=== PATIENT | female | born 1960 | race Caucasian/White ===

== ENCOUNTER → 2023-10-20 | Outpatient (CLI) | payer OTHER, SELFPAY ==
--- NOTE | 2023-10-20 08:36 | BI_ITS ---
MAMMOGRAPHY - BILATERAL SCREENING REASON FOR EXAM: Female, 63 years old. Routine annual screening examination. PERTINENT HISTORY: Non-contributory. TECHNIQUE: Digital bilateral breast gali (3D mammographic acquisition) in the CC and MLO projections. 2-D mediolateral oblique (MLO) and craniocaudad (CC) views of both breasts were obtained. CAD: Full Field Digital Mammography with Computer Added Detection was performed. COMPARISON: Comparison is made with prior outside examination dated October 02, 2022. FINDINGS: Breast Composition: There are scattered areas of fibroglandular density. There are no dominant masses or suspicious calcifications. No other significant abnormalities are identified. There has been no significant change since the prior study. BI/SCRN MAMM (CAD)W/GALI BILAT IMPRESSION: Stable bilateral screening mammogram. Yearly follow-up mammogram recommended. (A) ASSESSMENT CATEGORY: BIRADS Category 1: Negative. A letter regarding these results will be sent to the patient by the facility within 30 days. Approximately 10% of breast cancers are not detected by mammography. A normal mammogram should not delay biopsy of a clinically suspicious abnormality. [id number] Electronically Signed: Leonidas Carrasco MD at 13:53 EST ,
--- OUTSIDE RECORDS SUMMARY | 2023-10-20 08:48 | XMS RPT_ITS | CCD ---
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 Name Role Phone Faizan Dickens MD Unavailable James Barron Primary Care Provider James Barron Primary Care Provider [phone] James Barron DO Primary Care Provider James Barron DO Primary Care Provider James Barron DO Primary Care Provider James Barron Primary Care Unavailable James Barron Attending Unavailable PROVIDER, UNKNOWN Referring Unavailable James Barron Primary Care Unavailable James Barron Attending Unavailable PROVIDER, UNKNOWN Referring Unavailable James Barron Primary Care Unavailable PROVIDER, UNKNOWN Referring Unavailable Michelle Chan Attending Unavailable James Barron Primary Care Unavailable PROVIDER, UNKNOWN Referring Unavailable Michelle Chan Attending Unavailable James Barron Primary Care Unavailable James Barron Attending Unavailable PROVIDER, UNKNOWN Referring Unavailable Kilo Dela Cruz DO Unavailable Tokhoney BLANC - Annamaria JIMENEZ Unavailable Mariano LIMON Taye F Primary Care Provider Kilo Dela Cruz DO Unavailable Tokhoney BLANC - Annamaria JIMENEZ Unavailable Mariano LIMON Taye F Primary Care Provider Mariano LIMON Taye F Primary Care Provider Unavailable Primary Care Provider UnavailNURYS Contreras Attending Unavailable BJ PARRA Referring Unavailable JAMES BARRON Primary Care Unavailable JAMES BARRON Primary Care Unavailable BJ PARRA Admitting Unavailable BJ PARRA Attending Unavailable JAMES BARRON Primary Care Unavailable BJ PARRA Attending Unavailable TAYE QUINTANA Primary Care Unavailable TAYE QUINTANA Attending Unavailable JAMES BARRON Primary Care Unavailable JAMES BARRON Attending Unavailable TAYE QUINTANA Primary Care Unavailable TAYE QUINTANA Attending Unavailable JAMES BARRON Referring Unavailable BJ PARRA Attending Unavailable JAMES BARRON Primary Care Unavailable BJ PARRA Attending Unavailable JAMES BARRON Primary Care Unavailable ANDREW, BJ Attending Unavailable MICHELLE CHAN Referring Unavailable ANDERSON, JAMES Referring Unavailable Medications Current Medications Medication Drug Class(es) Dates Sig (Normalized) Sig (Original) [id number] 200 actuat albuterol 0.09 mg/actuat metered dose inhaler (19 sources) beta2-Adrenergic Agonist Start: 10-14-2022 End: 12-17-2023 take 2 puff(s) by inhalation every six hours as needed albuterol 108 (90 Base) MCG/ACT inhaler Inhale 2 puffs every 6 hours as needed for shortness of breath. 18 g 1 08/20/2023 12/17/2023 Active Completed/Discontinued Medications Medication Drug Class(es) Dates Sig (Normalized) Sig (Original) acetaminophen 300 mg / codeine phosphate 30 mg oral tablet (1 source) Opioid Agonist Start: TYLENOL WITH CODEINE #3 300-30 MG TABS 1 tablet every 4 hours as needed ACETAMINOPHEN-CODEINE [id number] Faizan Dickens MD hydroCHLOROthiazide 12.5 mg oral capsule (11 sources) Thiazide Diuretic Start: 3 End: 3 take 1 capsule by mouth once daily hydroCHLOROthiazide (Microzide) 12.5 MG capsule Take 1 capsule (12.5 mg) by mouth daily. 30 capsule 3 10/14/2022 02/18/2023 Discontinued (Alternate therapy) Problems Active Problems Problem Classification Problem Date Documented Date Episodic/Chronic Acquired foot deformities (20 sources) Acquired bilateral hallux valgus; Translations: [Hallux valgus (acquired), right foot] Onset: 06-25-2016 Resolved: 02-18-2023 05-04-2017 Chronic Acquired foot deformities (5 sources) Acquired bilateral hallux valgus; Translations: [Hallux valgus, acquired, bilateral] Onset: 06-25-2016 05-04-2017 Anxiety disorders (20 sources) Generalized anxiety disorder; Translations: [Generalized anxiety disorder] Onset: 12-26-2015 12-26-2015 Chronic Chronic obstructive pulmonary disease and bronchiectasis (20 sources) Chronic obstructive lung disease; Translations: [Chronic obstructive pulmonary disease, unspecified] Onset: 09-24-2018 Resolved: 02-18-2023 09-24-2018 Chronic Disorders of lipid metabolism (3 sources) Hypercholesterolemia; Translations: [Pure hypercholesterolemia, unspecified] Onset: 08-20-2023 08-20-2023 Chronic Esophageal disorders (20 sources) Gastroesophageal reflux disease; Translations: [Gastro-esophageal reflux disease without esophagitis] Onset: 02-20-2016 Resolved: 02-18-2023 12-04-2016 Chronic Essential hypertension (20 sources) Essential hypertension; Translations: [Hypertensive disorder] Onset: 09-21-2000 Resolved: 07-24-2020 08-16-2018 Chronic Mood disorders (1 source) Depressive disorder; Translations: [Depression, unspecified depression type] 08-20-2023 Chronic Mood disorders (2 sources) Mood disorders; Translations: [Depression, unspecified] Onset: 08-20-2023 Osteoarthritis (2 sources) Bilateral primary osteoarthritis of hip; Translations: [Bilateral primary osteoarthritis of hip] Onset: 06-18-2022 Chronic Other connective tissue disease (4 sources) Adhesive capsulitis of right shoulder; Translations: [Adhesive capsulitis of right shoulder] Onset: 08-16-2019 08-16-2019 Other endocrine disorders (2 sources) Other specified disorders of adrenal gland; Translations: [Other specified disorders of adrenal gland] Onset: 07-04-2022 Chronic Other lower respiratory disease (2 sources) Pulmonary fibrosis, unspecified; Translations: [Pulmonary fibrosis, unspecified] Onset: 07-04-2022 Chronic Other non-traumatic joint disorders (2 sources) Pain in left hip; Translations: [Pain in left hip] Onset: 06-18-2022 Episodic Other screening for suspected conditions (not mental disorders or infectious disease) (14 sources) Mammography abnormal; Translations: [Encounter for screening mammogram for malignant neoplasm of breast] Onset: 08-22-2021 Resolved: 02-18-2023 Episodic Other skin disorders (1 source) Eruption; Translations: [Rash and other nonspecific skin eruption] 08-06-2023 Episodic Screening and history of mental health and substance abuse codes (20 sources) Ex-smoker; Translations: [Personal history of nicotine dependence] Onset: 12-26-2015 12-26-2015 Episodic Unclassified (5 sources) Pneumococcal vaccination declined; Translations: [Pneumococcal vaccine refused] Onset: 03-28-2019 03-28-2019 Past or Other Problems Problem Classification Problem Date Documented Date Episodic/Chronic Abdominal hernia (20 sources) Diaphragmatic hernia without obstruction or gangrene; Translations: [Unilateral inguinal hernia, without obstruction or gangrene, not specified as recurrent] Onset: 2 Resolved: 3 Episodic Abdominal pain (20 sources) Epigastric pain; Translations: [Epigastric pain] Onset: 2 Resolved: 3 Episodic Alcohol-related disorders (20 sources) Alcohol intake above recommended sensible limits; Translations: [Alcohol abuse, uncomplicated] Onset: 7 Resolved: 3 05-04-2017 Chronic Fracture of lower limb (20 sources) Closed fracture of upper end of fibula; Translations: [Closed fracture of head of fibula] Onset: 8 Resolved: 3 08-20-2018 Episodic Other aftercare (2 sources) Encounter for other specified surgical aftercare; Translations: [Encounter for other specified surgical aftercare] Onset: 3 Episodic Other connective tissue disease (12 sources) Adhesive capsulitis of right shoulder; Translations: [Adhesive capsulitis of right shoulder] Onset: 9 08-16-2019 Episodic Other gastrointestinal disorders (2 sources) Dysphagia, pharyngoesophageal phase; Translations: [Dysphagia, pharyngoesophageal phase] Onset: 3 Episodic Other injuries and conditions due to external causes (20 sources) Injury of shoulder and upper arm; Translations: [Strain of muscle, fascia and tendon of other parts of biceps, right arm, initial encounter] Onset: 9 Resolved: 3 02-04-2019 Episodic Other lower respiratory disease (9 sources) Cough; Translations: [Cough] Onset: 3 Resolved: 3 Episodic Other lower respiratory disease (2 sources) Shortness of breath; Translations: [Shortness of breath] Onset: 1 Episodic Other non-traumatic joint disorders (20 sources) Shoulder pain; Translations: [Pain in right shoulder] Onset: 9 Resolved: 3 03-28-2019 Episodic Other non-traumatic joint disorders (17 sources) Joint swelling; Translations: [Effusion, unspecified joint] Onset: 7 Resolved: 3 05-04-2017 Episodic Other non-traumatic joint disorders (9 sources) Hip pain; Translations: [Pain in left hip] Onset: 2 Resolved: 3 Episodic Other non-traumatic joint disorders (4 sources) Pain in right shoulder; Translations: [Pain in joint, shoulder region] Onset: 9 Resolved: 3 02-18-2023 Episodic Residual codes; unclassified (20 sources) Amnesia; Translations: [Other amnesia] Onset: 7 Resolved: 3 05-04-2017 Episodic Residual codes; unclassified (12 sources) Pneumococcal vaccination declined; Translations: [Immunization not carried out because of patient refusal] Onset: 9 Resolved: 3 03-28-2019 Episodic Residual codes; unclassified (8 sources) Unspecified problems with limbs and other problems; Translations: [Problem] Onset: 3 Resolved: 3 11-04-2022 Episodic Unclassified (1 source) Problem Results Test Name Value Interpretation Reference Range Facil ity Vital Signs Date Time Vital Sign Value Performing Clinician Facility 08-20-2023 14:57-0500 Body height 167.6 cm Taye Tuckerrolf DO Work Phone: [facility] 08-20-2023 14:57-0500 Body mass index (BMI) [Ratio] 27.12 kg/m2 Taye Quintana DO Work Phone: [facility] 08-20-2023 14:57-0500 Body temperature 97.3 [degF] Taye Quintana DO Work Phone: [facility] [employer] 08-20-2023 14:57-0500 Body weight 76.2 kg Taye Quintana DO Work Phone: [facility] 08-20-2023 14:57-0500 Diastolic blood pressure 81 mm[Hg] Taye Quintana DO Work Phone: [facility] 08-20-2023 14:57-0500 Heart rate 70 /min Taye Quintana DO Work Phone: [facility] 08-20-2023 14:57-0500 SaO2% (BldA) [Mass fraction] 98 % Taye Quintana DO Work Phone: [facility] 08-20-2023 14:57-0500 Systolic blood pressure 131 mm[Hg] Taye Qiuntana DO Work Phone: [facility] 08-06-2023 15:29-0500 Body height 167.6 cm Nurys Rider AUDIO VISUAL SECRETARY.UNIFORM FORCE CAPTAIN Work Phone: [facility] 08-06-2023 15:29-0500 Diastolic blood pressure 68 mm[Hg] Nurys Rider AUDIO VISUAL SECRETARY.UNIFORM FORCE CAPTAIN Work Phone: [facility] 08-06-2023 15:29-0500 Heart rate 55 /min Nurys Rider AUDIO VISUAL SECRETARY.UNIFORM FORCE CAPTAIN Work Phone: [facility] 08-06-2023 15:29-0500 Respiratory rate 16 /min Nurys Rider AUDIO VISUAL SECRETARY.UNIFORM FORCE CAPTAIN Work Phone: [facility] 08-06-2023 15:29-0500 SaO2% (BldA) [Mass fraction] 98 % Nurys Rider AUDIO VISUAL SECRETARY.UNIFORM FORCE CAPTAIN Work Phone: [facility] 08-06-2023 15:29-0500 Systolic blood pressure 150 mm[Hg] Nurys Rider AUDIO VISUAL SECRETARY.UNIFORM FORCE CAPTAIN Work Phone: [facility] 02-18-2023 14:47-0400 Body height 167.6 cm Taye Quintana DO Work Phone: [facility] 02-18-2023 14:47-0400 Body mass index (BMI) [Ratio] 25.99 kg/m2 Taye Quintana DO Work Phone: [facility] 02-18-2023 14:47-0400 Body temperature 97.11 [degF] Taye Quintana DO Work Phone: [facility] 02-18-2023 14:47-0400 Body weight 73.03 kg Taye Quintana DO Work Phone: [facility] 02-18-2023 14:47-0400 Diastolic blood pressure 66 mm[Hg] Taye Quintana DO Work Phone: [facility] 02-18-2023 14:47-0400 Heart rate 53 /min Taye Quintana DO Work Phone: [facility] 02-18-2023 14:47-0400 SaO2% (BldA) [Mass fraction] 97 % Taye Quintana DO Work Phone: [facility] 02-18-2023 14:47-0400 Systolic blood pressure 105 mm[Hg] Taye Quintana DO Work Phone: [employer] 11-21-2019 13:16-0500 BP Diastolic 66 mm[Hg] [facility] [place] 11-21-2019 13:16-0500 BP Systolic 109 mm[Hg] [facility] [place] 11-21-2019 13:16-0500 Pulse (Heart Rate) 71 /min [place] [employer] [employer] [facility] 11-21-2019 13:16-0500 Pulse Oximetry 99 % [place] 11-21-2019 12:53-0500 Body Temperature 98.6 [degF] [facility] [place] 11-21-2019 11:48-0500 BMI (Body Mass Index) 28.29 kg/m2 [place] 11-21-2019 11:48-0500 Body weight 77.11 kg [place], [place] 11-21-2019 11:48-0500 Height 165.1 cm [place], [place] NEGATED: Highlighted [id number] 12:50-0500 BMI (Body Mass Index) 26.72 kg/m2 Jesi Diesch AIR DRIER MACHINE OPERATOR [facility] Work Phone: NEGATED: Highlighted [id number] 12:50-0500 BP Diastolic 98 mm[Hg] Jesi Diesch AIR DRIER MACHINE OPERATOR [facility] Work Phone: NEGATED: Highlighted [id number] 12:50-0500 BP Diastolic 99 mm[Hg] Jesi Diesch AIR DRIER MACHINE OPERATOR [facility] Work Phone: NEGATED: Highlighted [id number] 12:50-0500 BP Systolic 156 mm[Hg] Jesi Diesch AIR DRIER MACHINE OPERATOR [facility] Work Phone: NEGATED: Highlighted [id number] 12:50-0500 BP Systolic 159 mm[Hg] Jesi Diesch AIR DRIER MACHINE OPERATOR [facility] Work Phone: NEGATED: Highlighted [id number] 12:50-0500 Height 170.18 cm Jesi Diesch AIR DRIER MACHINE OPERATOR [facility] Work Phone: NEGATED: Highlighted [id number] 12:50-0500 Height 170 cm Jesi Diesch AIR DRIER MACHINE OPERATOR [facility] Work Phone: NEGATED: Highlighted [id number] 12:50-0500 Pulse (Heart Rate) 64 /min Jesi Diesch AIR DRIER MACHINE OPERATOR [facility] Work Phone: NEGATED: Highlighted [id number] 12:50-0500 Weight 77.11 kg Jesi Diesch AIR DRIER MACHINE OPERATOR [facility] Work Phone: NEGATED: Highlighted [id number] 12:50-0500 Weight 77 kg Jesi Florentino LPN [facility] Work Phone: Encounters Encounter Date Encounter Type Care Provider Facility Start: 08-20-2023 End: 08-20-2023 ambulatory TAYE QUINTANA [facility] Start: 08-20-2023 End: 08-20-2023 Office outpatient visit 15 minutes Taye Quintana DO Work Phone: [facility] Procedures Date Procedure Procedure Detail Performing Clinician Start: 10-14-2022 Follow-up visit Follow-up JAMES CHANGO Start: 10-02-2022 Mammography Taye brown DO Work Phone: Start: 06-18-2022 Radex hip unilateral with pelvis 2-3 views James Barron DO Work Phone: Start: 04-29-2021 Radiologic exam ches t 2 views James Barron DO Work Phone: Start: 12-06-2019 Blood count complete auto&auto difrntl wbc Moris [employer] Work Phone: Start: 12-06-2019 Comprehensive metabo lic panel Moris Soni Work Phone: Start: 11-21-2019 End: 11-21-2019 Colonoscopy 3m Scanning Start: 11-21-2019 [facility] ENDOSCOPY REPORT 3m Scanning Start: 05-05-2019 Radex shoulder compl ete minimum 2 views Nicolas Galindo Work Phone: Start: 12-20-2018 Lipid 1996 panel - S aixa or Plasma Nurys Rider AUDIO VISUAL SECRETARY.UNIFORM FORCE CAPTAIN Work Phone: Start: 08-20-2018 End: 08-20-2018 Blood pressure outside of normal parameters - follow-up not documented Faizan Dickens MD Work Phone: Start: 08-20-2018 End: 08-20-2018 BMI documented as above normal parameters - follow-up documented Faizan Dickens MD Work Phone: Start: 08-20-2018 End: 08-20-2018 Doc fx & test/txmnt for op Faizan Kendrick se, MD Work Phone: Start: 08-20-2018 End: 08-20-2018 Documentation of current medications Faizan Dickens MD Work Phone: Start: 08-20-2018 End: 08-20-2018 Pain assessment documented as positive - follow-up documented Faizan Dickens MD Work Phone: Start: 08-20-2018 End: 08-20-2018 Radex ankle complete minimum 3 views Faizan Dickens MD Work Phone: Start: 08-20-2018 End: 08-20-2018 Tobacco non-user Faizan Dickens MD Work Phone: Plan of Treatment Date Care Activity Detail Author Start: 11-20-2029 Colon cancer screen colonoscopy Colon cancer screen colonoscopy [place], [place] Start: 11-20-2029 Screening for malignant neoplasm of colon [facility] Start: 08-14-2028 DTaP/Tdap/Td vaccine (2 - Td or Tdap) DTaP/Tdap/Td vaccine (2 - Td or Tdap) [facility] Start: 08-14-2028 DTaP/Tdap/Td vaccine (2 - Td) DTaP/Tdap/Td vaccine (2 - Td) [place] Start: 08-14-2028 DTaP/Tdap/Td Vaccines (2 - Td or Tdap) DTaP/Tdap/Td Vaccines (2 - Td or Tdap) [facility] Start: 08-14-2028 Urine microalbumin profile DTaP,Tdap,Td Vaccine (2 - Td or Tdap) [facility] Start: 02-25-2026 Colon cancer screen colonoscopy Colon cancer screen colonoscopy [place], [place] Start: 02-18-2024 End: 02-18-2024 Patient encounter procedure 02/18/2024 3:30 PM EDT Office Visit [facility] [address] [place] [address] Taye Quintana, DO [address] [place] [address] [facility] Start: 12-21-2023 Lipid 1996 panel - Serum or Plasma Lipid Screening [facility] Start: 12-21-2023 Lipid panel [facility] Start: 12-21-2023 Lipid screen Lipid screen [place], [place] Start: 10-02-2023 Screening for malignant neoplasm of breast Mammogram [facility] Start: 08-22-2023 Screening for malignant neoplasm of breast Breast cancer screen [facility] Start: 08-20-2023 End: 08-20-2023 Patient encounter procedure [facility] Start: 08-20-2023 End: 08-20-2024 CBC W Auto Differential panel - Blood CBC auto differential Lab Routine Primary hypertension Expected: 08/20/2023 (Approximate), Expires: 08/20/2024 [facility] Work Phone: Immunizations Immunization Date Immunization Notes Care Provider Fa cility 02-18-2023 Pneumococcal Conjuga te PCV20, Pf (Prevnar 20) Taye Quintana DO Work Phone: [facility] [employer] 09-15-2021 COVID-19, MODERNA BL UE border, Primary or Immunocompromised, (age 12y+), IM, 100 mcg/0.5mL James Barron DO Work Phone: [facility] Work Phone: 03-07-2021 COVID-19, MODERNA BL UE border, Primary or Immunocompromised, (age 12y+), IM, 100 mcg/0.5mL James Barron DO Work Phone: [facility] 02-07-2021 COVID-19, MODERNA BL UE border, Primary or Immunocompromised, (age 12y+), IM, 100 mcg/0.5mL James Barron DO Work Phone: [facility] Work Phone: 06-26-2020 Influenza, High-dose , Quadv, 65 yrs +, IM (Fluzone) James Barron [facility] 06-26-2020 influenza virus vaccine, unspecified formulation Taye Quintana DO Work Phone: [facility] 08-14-2018 tetanus toxoid, reduced diphtheria toxoid, and acellular pertussis vaccine, adsorbed Nicolas Galindo [facility] Work Phone: No information available. Jesi Florentino JUSTICE [facility] Work Phone: Payers Date Payer Category Payer Unknown [id number] 2018 Unknown 2016 Unknown BCBS [place] - [place] P PO xxxxxxxxxxxxxxx 2016-Present [address] [place] [address] xxxxxxxxxxxxxxx [id number] 2016 Unknown [id number] 1962 Unknown [id number] 1962 Unknown [id number] 1962 Unknown [id number] 1962 Unknown [id number] 1960 Unknown [id number] Social History Date Type Detail Facility Start: 11-21-2019 End: 10-13-2022 Tobacco smoking status NHIS Former smoker [facility] End: 09-21-2015 History of tobacco use Current smoker [place], [place] End: 09-21-2015 History of tobacco use Cigarette Smoker [place] Start: 11-21-2019 End: 02-18-2023 Cigarettes smoked current (pack per day) - Reported [place] Start: 11-21-2019 End: 08-20-2023 Alcohol intake Lifetime non-drinker (finding) [facility] Start: 12-20-2018 End: 06-17-2022 History SDOH Alcohol Frequency [facility] Start: 12-20-2018 End: 06-17-2022 History SDOH Social Connections Phone 5 [facility] Start: 12-20-2018 End: 03-15-2019 History SDOH Social Connections [facility] Start: 12-20-2018 History SDOH [facility]ctions [facility] Start: 12-20-2018 History SDOH Financial 4 [facility] ID Start: 1960 Sex Assigned At Not on file [facility] Start: 06-26-2020 End: 10-13-2022 Tobacco use and exposure [facility] Start: 05-05-2019 End: 02-18-2023 [facility] intake [facility]: 1960 Sex Assigned At Female [facility] Work Phone: Start: 12-02-2022 End: 02-18-2023 Exposure to SARS-CoV-2 (event) Not sure [facility] Tobacco smoking status NHIS Tobacco smoking consumption unknown [facility] NEGATED: Highlighted rowStart: 08-20-2018 End: 08-20-2018 Alcohol use Former smoker [facility] Work Phone: NEGATED: Highlighted rowStart: 08-20-2018 End: 08-20-2018 Details of drug misuse behavior DRUG USE No [facility] Work Phone: NEGATED: Highlighted rowStart: 08-20-2018 End: 08-20-2018 Employment detail OCCUPATION#1 [employer] [facility] Work Phone: NEGATED: Highlighted rowStart: 08-20-2018 End: 08-20-2018 Assertion Former smoker [facility] Work Phone: Medical Equipment Procedure Code Equipment Code Equipment Origin al Text Equipment Identifier Dates Mesh Progrip 10x 15cm Rt - [id number] Start: 10-20-2022 Goals Date Patient Goal Desired Activity /State Clinical Notes 10-13-2022 to 08-20-2023 Taye Quintana DO - 08/20/2023 3:00 PM Nurys Bell APRN.SANDEEP - 08/06/2023 3:25 PM ESTPatient InstructionsTelephone Encounter - Jazzmine Khalil - 06/01/2023 9:45 AM EDT Note Date & Type Note Facility 08-20-2023 History of Present illness Narrative Images from the original note were not included. [facility] [address] [place] [address] [address] [facility] [address] Visit type: Established Patient Reason for Visit: Follow-up (6 month med check) Assessment / Plan: Marycruz was seen today for follow-up. Diagnoses and all orders for this visit: Primary hypertension (Primary) Comments: Stable, continue metoprolol and benazepril Orders: - CBC auto differential; Future - Comprehensive metabolic panel; Future - CBC auto differential - Comprehensive metabolic panel Gastroesophageal reflux disease without esophagitis Comments: Stable, Dexilant as needed Depression, unspecified depression type Comments: Stable, continue Effexor Chronic obstructive pulmonary disease, unspecified COPD type (HCC) Comments: Noted, praise given about smoking cessation. Continue fluticasone and albuterol as needed Ex-smoker Hypercholesterolemia Comments: Stable, recheck lab Orders: - Lipid panel; Future - TSH; Future - Lipid panel - TSH Encounter for screening mammogram for malignant neoplasm of breast Comments: Defers exam today. Mammogram, breast exam next visit Orders: - Bilateral screening mammogram with tomosynthesis; Future Other orders - albuterol 108 (90 Base) MCG/ACT inhaler; Inhale 2 puffs every 6 hours as needed for shortness of breath. - benazepril (Lotensin) 40 MG tablet; Take 1 tablet (40 mg) by mouth daily. - Fluticasone-Salmeterol 250-50 MCG/ACT aerosol powder ; Inhale 1 puff in the morning and 1 puff in the evening. - metoprolol succinate XL (Toprol-XL) 100 MG 24 hr tablet; Take 1 tablet (100 mg) by mouth daily. - venlafaxine XR (Effexor XR) 150 MG 24 hr capsule; Take 1 capsule (150 mg) by mouth daily. Subjective: Patient ID: Marycruz Longoria is a 63 y.o. female. HPI ex-smoker for many years with history of mild COPD, hypertension and anxiety presents for checkup. Of note had fundoplication this along with ventral and inguinal hernia repair 10 months ago and rarely uses Dexilant. She feels that is helped a lot. Has been on Effexor quite a while. Has generalized anxiety and history of mild memory loss. Things are better. She is actually doing well with her position at work. Her recently retired due to severe COPD. Review of Systems denies recent earache sore throat or cough. No purulent phlegm or fever. No chest pain or palpitations. No PND orthopnea or edema. No heartburn or choking. No melena or blood. Bowels are regular. Colonoscopy due in 3 years. Does not desire mammogram But defers exam today. No change in stress or anxiety. Her children and grandkids are well No Known Allergies Current Outpatient Medications on File Prior to Visit Medication Sig Dispense Refill cetirizine (ZyrTEC) 10 MG tablet Take by mouth. dexlansoprazole (Dexilant) [address] capsule Take 1 capsule (60 mg) by mouth daily. 90 capsule 1 pantoprazole (ProtoNix) 40 MG EC tablet Take 1 tablet (40 mg) by mouth Daily as needed (as needed for gerd). 90 tablet 1 [DISCONTINUED] albuterol 108 (90 Base) MCG/ACT inhaler Inhale 2 puffs every 6 hours as needed for shortness of breath. 18 g 1 [DISCONTINUED] benazepril (Lotensin) 40 MG tablet Take 1 tablet (40 mg) by mouth daily. 90 tablet 1 [DISCONTINUED] Fluticasone-Salmeterol 250-50 MCG/ACT aerosol powder Inhale 1 puff in the morning and 1 puff in the evening. 1 each 3 [DISCONTINUED] metoprolol succinate XL (Toprol-XL) 100 MG 24 hr tablet Take 1 tablet (100 mg) by mouth daily. 90 tablet 0 [DISCONTINUED] venlafaxine XR (Effexor XR) 150 MG 24 hr capsule Take 1 capsule (150 mg) by mouth daily. 90 capsule 0 No current facility-administered medications on file prior to visit. Patient Active Problem List Diagnosis Adhesive capsulitis of right shoulder Ex-smoker Generalized anxiety disorder COPD (chronic obstructive pulmonary disease) (HCC) HTN (hypertension) Hallux valgus, acquired, bilateral Hiatal hernia Gastroesophageal reflux disease Social History Tobacco Use Smoking status: Former Packs/day: 0.50 Years: 35.00 Additional pack years: 0.00 Total pack years: 17.50 Types: Cigarettes Quit date: 09/21/2015 Years since quittin.9 Smokeless tobacco: Never Substance Use Topics Alcohol use: Never Past Surgical History: Procedure Laterality Date SECTION, LOW TRANSVERSE 1986 pfannenstiel SECTION, LOW TRANSVERSE 1988 Pfannenstiel COLONOSCOPY 02/2016 neg per Julian- due 2025 ESOPHAGOGASTRODUODENOSCOPY 2021 Gastritis. Follow-up with GI 6 weeks HIATAL HERNIA REPAIR 10/20/2022 lap Rt Ing hernia repair w/mesh, hiatal hernia repair w/ mesh, open incisional hernia repair TONSILLECTOMY AND ADENOIDECTOMY (HISTORICAL) 1968 TOTAL ABDOMINAL HYSTERECTOMY 1997 UPPER GASTROINTESTINAL ENDOSCOPY 2015 esoph dil per [facility] UPPER GASTROINTESTINAL ENDOSCOPY 2016 [facility] WISDOM TOOTH EXTRACTION Family History Problem Relation Name Age of Onset Atrial fibrillation Mother Bonita Davison chf High Blood Pressure Mother Bonita Davison age 92 in fall of 2020 Stroke Father Ed Saman Heart disease Father Ed Saman CHF High Blood Pressure Father Mason Davison age 89 in 11/04 Hypertension Sister Argenis Quiñones No Known Problems Brother Miki Atrial fibrillation Brother Alfie No Known Problems Brother Valerio Objective: BP 131/81 Pulse 70 Temp 36.3 C (97.3 F) (Temporal) Ht 5' 6 (1.676 m) Wt 168 lb (76.2 kg) SpO2 98% BMI 27.12 kg/m Physical Exam Exam is unremarkable today. Blood pressure recheck well. No thyroid or neck masses. Normal oropharynx. No adenopathy or carotid bruits. Heart is regular without gallops or murmurs. Lungs are diminished but clear of rales wheezes or egophony. Abdomen soft without pain hepatosplenomegaly masses bruits or ascites. Femoral pedal pulses are good. No edema. documented in this encounter [facility] 08-06-2023 Note HNO ID: [id number] Author: Nurys Rider APRN.[facility] Service: ? Author Type: Nurse Practitioner Type: Progress Notes Filed: 08/06/2023 3:39 PM Note Text: This note was created using LuckyCal[employer]. Subjective Marycruz Longoria is a 63 year old female. HPI by patient: Marycruz Longoria is a 63 year old presenting to the office with the complaint of a rash to the bilateral arms, back, and abdomen. Started today. Associated symptoms include itching. Denies difficulty breathing, difficulty swallowing, or tingling in the throat. Has never had a similar rash. No contacts with similar rash. Denies all new exposures asides from her metoprolol- not a new medication but did get a refill and it looks just like the other ones. OTC benadryl with some improvement. No antibiotic use in the last 60 days. ALLERGIES No Known Allergies No family history on file. Active Ambulatory Problems No Active Ambulatory Problems Resolved Ambulatory Problems No Resolved Ambulatory Problems No Additional Past Medical History Review of Systems Constitutional: Negative. HENT: Negative. Eyes: Negative. Respiratory: Negative. Cardiovascular: Negative. Gastrointestinal: Negative. Endocrine: Negative. Genitourinary: Negative. Musculoskeletal: Negative. Skin: Positive for rash. Neurological: Negative. Hematological: Negative. Objective BP 150/68 Pulse (!) 55 Resp 16 Ht 167.6 cm (5' 6 ) SpO2 98% Physical Exam Vitals reviewed. Constitutional: General: She is not in acute distress. Appearance: She is not ill-appearing, toxic-appearing or diaphoretic. Cardiovascular: Rate and Rhythm: Normal rate and regular rhythm. Pulmonary: Effort: Pulmonary effort is normal. Skin: Findings: Rash present. Rash is urticarial. Neurological: Mental Status: She is alert. Psychiatric: Behavior: Behavior is cooperative. Assessment and Plan (R21) Rash (primary encounter diagnosis) Plan: methylPREDNISolone (MEDROL DOSE-PACK) 4 mg Dose-Pack, famotidine (PEPCID) 20 mg tablet, cetirizine (ZYRTEC) 10 mg tablet, triamcinolone acetonide (KENALOG) 0.1 % cream Urticarial rash, having a reaction to something. No difficulty breathing or swallowing. Antihistamines to block histamine 1 and 2. No protonix while taking pepcid. Oral steroids with food, low dose steroid given her blood pressure. Triamcinolone ointment to the rash. -Keep area clean and dry. Non scented antimicrobial soap and water. -If you have significant itching please avoid heat as this can make the itching worse. Cool compresses for comfort. -Do not pick at the site. This can lead to a secondary infection. -Worsening symptoms: increased in size, streaking up or down the skin, fever of 101 F or higher, or copious drainage from the site, difficulty swallowing/breathing, swelling anywhere, chest pain. -Make a follow up with primary care, may need allergy testing done. -Be seen immediately or go to the ER with worsening symptoms. The patient will pursue further outpatient evaluation with the primary care physician or another Urgent Care/Express Care as outlined in the after visit summary. The patient is agreeable to this plan of care and follow-up instructions have been explained in detail. The patient has received these instructions in written format and have expressed an understanding of the after visit summary. Medical Decision Making: Level: 4 - Moderate I spent a total of 20 minutes on the date of the service which included preparing to see the patient, [id number] patient care, completing clinical documentation, obtaining and/or reviewing separately obtained history, performing a medically appropriate examination, counseling and educating the patient/family/caregiver, and ordering medications, tests, or procedures. [facility] 08-06-2023 History of Present illness Narrative Images from the original note were not included. This note was created using LuckyCalriter. Subjective Marycruz Longoria is a 63 year old female. HPI by patient: Marycruz Longoria is a 63 year old presenting to the office with the complaint of a rash to the bilateral arms, back, and abdomen. Started today. Associated symptoms include itching. Denies difficulty breathing, difficulty swallowing, or tingling in the throat. Has never had a similar rash. No contacts with similar rash. Denies all new exposures asides from her metoprolol- not a new medication but did get a refill and it looks just like the other ones. OTC benadryl with some improvement. No antibiotic use in the last 60 days. ALLERGIES No Known Allergies No family history on file. Active Ambulatory Problems No Active Ambulatory Problems Resolved Ambulatory Problems No Resolved Ambulatory Problems No Additional Past Medical History Review of Systems Constitutional: Negative. HENT: Negative. Eyes: Negative. Respiratory: Negative. Cardiovascular: Negative. Gastrointestinal: Negative. Endocrine: Negative. Genitourinary: Negative. Musculoskeletal: Negative. Skin: Positive for rash. Neurological: Negative. Hematological: Negative. Objective BP 150/68 Pulse (!) 55 Resp 16 Ht 167.6 cm (5' 6 ) SpO2 98% Physical Exam Vitals reviewed. Constitutional: General: She is not in acute distress. Appearance: She is not ill-appearing, toxic-appearing or diaphoretic. Cardiovascular: Rate and Rhythm: Normal rate and regular rhythm. Pulmonary: Effort: Pulmonary effort is normal. Skin: Findings: Rash present. Rash is urticarial. Neurological: Mental Status: She is alert. Psychiatric: Behavior: Behavior is cooperative. Assessment and Plan (R21) Rash (primary encounter diagnosis) Plan: methylPREDNISolone (MEDROL DOSE-PACK) 4 mg Dose-Pack, famotidine (PEPCID) 20 mg tablet, cetirizine (ZYRTEC) 10 mg tablet, triamcinolone acetonide (KENALOG) 0.1 % cream Urticarial rash, having a reaction to something. No difficulty breathing or swallowing. Antihistamines to block histamine 1 and 2. No protonix while taking pepcid. Oral steroids with food, low dose steroid given her blood pressure. Triamcinolone ointment to the rash. -Keep area clean and dry. Non scented antimicrobial soap and water. -If you have significant itching please avoid heat as this can make the itching worse. Cool compresses for comfort. -Do not pick at the site. This can lead to a secondary infection. -Worsening symptoms: increased in size, streaking up or down the skin, fever of 101 F or higher, or copious drainage from the site, difficulty swallowing/breathing, swelling anywhere, chest pain. -Make a follow up with primary care, may need allergy testing done. -Be seen immediately or go to the ER with worsening symptoms. The patient will pursue further outpatient evaluation with the primary care physician or another Urgent Care/Express Care as outlined in the after visit summary. The patient is agreeable to this plan of care and follow-up instructions have been explained in detail. The patient has received these instructions in written format and have expressed an understanding of the after visit summary. Medical Decision Making: Level: 4 - Moderate I spent a total of 20 minutes on the date of the service which included preparing to see the patient, [id number] patient care, completing clinical documentation, obtaining and/or reviewing separately obtained history, performing a medically appropriate examination, counseling and educating the patient/family/caregiver, and ordering medications, tests, or procedures. documented in this encounter [facility] 08-06-2023 Instructions Nurys Rider APRN.CNP - 08/06/2023 3:25 PM EST (R21) Rash (primary encounter diagnosis) Plan: methylPREDNISolone (MEDROL DOSE-PACK) 4 mg Dose-Pack, famotidine (PEPCID) 20 mg tablet, cetirizine (ZYRTEC) 10 mg tablet, triamcinolone acetonide (KENALOG) 0.1 % cream Urticarial rash, having a reaction to something. No difficulty breathing or swallowing. Antihistamines to block histamine 1 and 2. No protonix while taking pepcid. Oral steroids with food. Triamcinolone ointment to the rash. -Keep area clean and dry. Non scented antimicrobial soap and water. -If you have significant itching please avoid heat as this can make the itching worse. Cool compresses for comfort. -Do not pick at the site. This can lead to a secondary infection. -Worsening symptoms: increased in size, streaking up or down the skin, fever of 101 F or higher, or copious drainage from the site, difficulty swallowing/breathing, swelling anywhere, chest pain. -Make a follow up with primary care, may need allergy testing done. -Be seen immediately or go to the ER with worsening symptoms. documented in this encounter [facility] 06-01-2023 Telephone encounter Note Ordering provider: Mariano Date of last office visit: 02/18/2023 Date of next office visit: 08/20/2023 Updated/Validated preferred pharmacy: Yes Patient instructed to contact the pharmacy prior to picking up the medication: No (1) Medication name: metoprolol succinate XL (Toprol-XL) 100 MG 24 hr tablet Medication dosage: 100 mg (Miligrams Monthly quantity needed: 30 How many day supply requestin days Medication route: oral (PO) Medication administration time(s): daily If taking medication PRN, reason for taking medication: N/A If this is a controlled substance do you receive this or any other controlled medication from any other doctor or facility: No Date of last refill (see medication tab): 02/18/2023 (2) Medication name: venlafaxine XR (Effexor XR) 150 MG 24 hr capsule Medication dosage: 150 mg (Miligrams Monthly quantity needed: 30 How many day supply requestin days Medication route: oral (PO) Medication administration time(s): daily If taking medication PRN, reason for taking medication: N/A If this is a controlled substance do you receive this or any other controlled medication from any other doctor or facility: No Date of last refill (see medication tab): 02/18/2023 [facility] 06-01-2023 Miscellaneous Notes Ordering provider: Mariano Date of last office visit: 02/18/2023 Date of next office visit: 08/20/2023 Updated/Validated preferred pharmacy: Yes Patient instructed to contact the pharmacy prior to picking up the medication: No (1) Medication name: metoprolol succinate XL (Toprol-XL) 100 MG 24 hr tablet Medication dosage: 100 mg (Miligrams Monthly quantity needed: 30 How many day supply requestin days Medication route: oral (PO) Medication administration time(s): daily If taking medication PRN, reason for taking medication: N/A If this is a controlled substance do you receive this or any other controlled medication from any other doctor or facility: No Date of last refill (see medication tab): 02/18/2023 (2) Medication name: venlafaxine XR (Effexor XR) 150 MG 24 hr capsule Medication dosage: 150 mg (Miligrams Monthly quantity needed: 30 How many day supply requestin days Medication route: oral (PO) Medication administration time(s): daily If taking medication PRN, reason for taking medication: N/A If this is a controlled substance do you receive this or any other controlled medication from any other doctor or facility: No Date of last refill (see medication tab): 02/18/2023 documented in this encounter [facility] 02-18-2023 History of Present illness Narrative Images from the original note were not included. [facility] [address] [id number] Visit type: Established Patient Reason for Visit: Follow-up (6 month Med check) Assessment / Plan: Marycruz was seen today for follow-up. Diagnoses and all orders for this visit: Essential hypertension (Primary) Comments: Stable, continue metoprolol and stop hydrochlorothiazide due to relative low blood pressure Gastroesophageal reflux disease without esophagitis Comments: Stable, continue Protonix and avoidance measures Chronic obstructive pulmonary disease, unspecified COPD type (HCC) Comments: Stable, continue fluticasone, Zyrtec, and albuterol and praised smoking cessation Ex-smoker Generalized anxiety disorder Comments: Stable, continue Effexor Other orders - albuterol 108 (90 Base) MCG/ACT inhaler; Inhale 2 puffs every 6 hours as needed for shortness of breath. - benazepril (Lotensin) 40 MG tablet; Take 1 tablet (40 mg) by mouth daily. - dexlansoprazole (Dexilant) [address] capsule; Take 1 capsule (60 mg) by mouth daily. - Fluticasone-Salmeterol 250-50 MCG/ACT aerosol powder ; Inhale 1 puff in the morning and 1 puff in the evening. - metoprolol succinate XL (Toprol-XL) 100 MG 24 hr tablet; Take 1 tablet (100 mg) by mouth daily. - pantoprazole (ProtoNix) 40 MG EC tablet; Take 1 tablet (40 mg) by mouth Daily as needed (as needed for gerd). - venlafaxine XR (Effexor XR) 150 MG 24 hr capsule; Take 1 capsule (150 mg) by mouth daily. - Pneumococcal conjugate vaccine 20-valent IM (PREVNAR 20) Subjective: Patient ID: Marycruz Longoria is a 63 y.o. female. HPI ex-smoker for about 7 years but history of COPD, hypertension chronic anxiety and GERD presents for first-time checkup by me in many years. Past medical, surgical, family social history reviewed and chart updated. Recently her and [id number] and [id number] all had COVID infection. She had a minimal case. All 3 of those people have not been vaccinated. Nonetheless she is feeling a lot better. Back to her baseline respiratory ware over the last month Review of Systems chronic acid reflux treated well with either Protonix or Dexilant. No recent choking heartburn pyrosis abdominal pain. Has stopped alcohol excess and quit smoking many years ago. No bowel changes. No melena or blood. Blood pressure trending lower at home. She has lost weight from eating well and also due to her mild case of COVID. No change in phlegm or fever. Rare use of albuterol. Compliant with fluticasone salmeterol. Breast cancer screening up-to-date. Colonoscopy due in 3 years No Known Allergies Current Outpatient Medications on File Prior to Visit Medication Sig Dispense Refill [DISCONTINUED] albuterol 108 (90 Base) MCG/ACT inhaler Inhale 2 puffs every 6 hours as needed for shortness of breath. 18 g 1 [DISCONTINUED] benazepril (Lotensin) 40 MG tablet Take 1 tablet (40 mg) by mouth daily. 90 tablet 1 [DISCONTINUED] dexlansoprazole (Dexilant) [address] capsule Take 1 capsule by mouth in the morning. [DISCONTINUED] Fluticasone-Salmeterol 250-50 MCG/ACT aerosol powder Inhale 1 puff in the morning and 1 puff in the evening. 1 each 3 [DISCONTINUED] hydroCHLOROthiazide (Microzide) 12.5 MG capsule Take 1 capsule (12.5 mg) by mouth daily. 30 capsule 3 [DISCONTINUED] metoprolol succinate XL (Toprol-XL) 100 MG 24 hr tablet Take 1 tablet (100 mg) by mouth daily. 90 tablet 1 [DISCONTINUED] pantoprazole (ProtoNix) 40 MG EC tablet Take by mouth Daily as needed. [DISCONTINUED] venlafaxine XR (Effexor XR) 150 MG 24 hr capsule Take 1 capsule (150 mg) by mouth daily. 90 capsule 0 cetirizine (ZyrTEC) 10 MG tablet Take by mouth. No current facility-administered medications on file prior to visit. Patient Active Problem List Diagnosis Adhesive capsulitis of right shoulder Ex-smoker Generalized anxiety disorder COPD (chronic obstructive pulmonary disease) (HCC) HTN (hypertension) Hallux valgus, acquired, bilateral Hiatal hernia Gastroesophageal reflux disease Social History Tobacco Use Smoking status: Former Packs/day: 0.50 Years: 35.00 Pack years: 17.50 Types: Cigarettes Quit date: 09/21/2015 Years since quittin.4 Smokeless tobacco: Never Substance Use Topics Alcohol use: Never Past Surgical History: Procedure Laterality Date SECTION, LOW TRANSVERSE 1986 pfannenstiel SECTION, LOW TRANSVERSE 1988 Pfannenstiel COLONOSCOPY 02/2016 neg per Julian- due 2025 ESOPHAGOGASTRODUODENOSCOPY 05/15/2022 Gastritis. Follow-up with GI 6 weeks HERNIA REPAIR 10/20/2022 EGD, laparoscopic right inguinal hernia repair with mesh, laparoscopic hiatal hernia repair with mesh, open incisional hernia repair HIATAL HERNIA REPAIR TONSILLECTOMY AND ADENOIDECTOMY (HISTORICAL) 1968 TOTAL ABDOMINAL HYSTERECTOMY 1997 UPPER GASTROINTESTINAL ENDOSCOPY 02/2016 esoph dil per Julian UPPER GASTROINTESTINAL ENDOSCOPY 04/20/2017 [facility] WISDOM TOOTH EXTRACTION Family History Problem Relation Name Age of Onset Atrial fibrillation Mother Bonita Davison chf High Blood Pressure Mother Bonita Davison age 92 in fall of 2020 Stroke Father Ed Saman Heart disease Father Ed Saman CHF High Blood Pressure Father Mason Davison age 89 in 11/04 Hypertension Sister Argenis Quiñones No Known Problems Brother Miki Atrial fibrillation Brother Alfie No Known Problems Brother Valerio Objective: BP 105/66 Pulse 53 Temp 36.2 C (97.1 F) (Temporal) Ht 5' 6 (1.676 m) Wt 161 lb (73 kg) SpO2 97% BMI 25.99 kg/m Physical Exam The physical exam is generally normal. Patient appears well, alert and oriented x 3, pleasant, cooperative. Vitals are as noted. No carotid bruits. Neck supple, no abnormal adenopathy, thyroid lesions or masses. Ears, nose and throat are normal without acute findings. Lungs are clear to auscultation. Heart is regular, without murmurs, gallops or ectopy. Abdomen is soft, non tender, without masses, hepatosplenomegaly, or bruits. Normal BS evident. Extremities are normal without edema. Peripheral pulses are fair. No worrisome skin lesions. Screening neurological exam is normal without focal deficits. documented in this encounter [facility] 01-15-2023 Telephone encounter Note S: Patient spoke with [facility] nurse regarding sinus issues B: Onset of symptoms/concern 2 days ago A: PT C/O Coughing, H/A sinus drainage. Pt did test Positive for Covid 2 days ago. Advised her since symptoms were mild to do conventual therapy such as Advil for H/A and musinex D and sucking on lemon drops/cough drops also warm tea with honey will sooth the throat to help with coughing and drainage. Advised to increase her fluids as well. Pt gave verbal understanding. R: Advised Patient if gets any worse to give us a call back [facility] 01-15-2023 Miscellaneous Notes S: Patient spoke with [facility] nurse regarding sinus issues B: Onset of symptoms/concern 2 days ago A: PT C/O Coughing, H/A sinus drainage. Pt did test Positive for Covid 2 days ago. Advised her since symptoms were mild to do conventual therapy such as Advil for H/A and musinex D and sucking on lemon drops/cough drops also warm tea with honey will sooth the throat to help with coughing and drainage. Advised to increase her fluids as well. Pt gave verbal understanding. R: Advised Patient if gets any worse to give us a call back documented in this encounter [facility] 12-25-2022 Telephone encounter Note Rx loaded Last ov 10/14/22 Next ov 02/13/23 [facility] 12-25-2022 Miscellaneous Notes Rx loaded Last ov 10/14/22 Next ov 02/13/23 Medication name: albuterol 108 Medication dosage: MCG/ACT Monthly quantity needed: 90 How many day supply requestin days Medication route: inhalation (inhaler) Medication administration time(s): every 6 hours If taking medication PRN, reason for taking medication: N/A If this is a controlled substance do you receive this or any other controlled medication from any other doctor or facility: No Ordering provider: Mariano Date of last office visit: 10.14.22 Date of next office visit: 02.13.23 Date of last refill: (see medication tab): 10.14.22 Updated/Validated preferred pharmacy: Yes Patient instructed to contact the pharmacy prior to picking up the medication: Yes documented in this encounter [facility] 12-25-2022 Telephone encounter Note Medication name: albuterol 108 Medication dosage: MCG/ACT Monthly quantity needed: 90 How many day supply requestin days Medication route: inhalation (inhaler) Medication administration time(s): every 6 hours If taking medication PRN, reason for taking medication: N/A If this is a controlled substance do you receive this or any other controlled medication from any other doctor or facility: No Ordering provider: Mariano Date of last office visit: 10.14.22 Date of next office visit: 02.13.23 Date of last refill: (see medication tab): 10.14.22 Updated/Validated preferred pharmacy: Yes Patient instructed to contact the pharmacy prior to picking up the medication: Yes [facility] 12-25-2022 Telephone encounter Note Medication name: albuterol 108 Medication dosage: MCG/ACT Monthly quantity needed: 90 How many day supply requestin days Medication route: inhale Medication administration time(s): every 6 hours If taking medication PRN, reason for taking medication: N/A If this is a controlled substance do you receive this or any other controlled medication from any other doctor or facility: No Ordering provider: Anderson Date of last office visit: 10.14.22 Date of next office visit: 02.13.23 Date of last refill: (see medication tab): 10.14.22 Updated/Validated preferred pharmacy: Yes Patient instructed to contact the pharmacy prior to picking up the medication: N/A [facility] 12-25-2022 Miscellaneous Notes Medication name: albuterol 108 Medication dosage: MCG/ACT Monthly quantity needed: 90 How many day supply requestin days Medication route: inhale Medication administration time(s): every 6 hours If taking medication PRN, reason for taking medication: N/A If this is a controlled substance do you receive this or any other controlled medication from any other doctor or facility: No Ordering provider: Anderson Date of last office visit: 10.14.22 Date of next office visit: 02.13.23 Date of last refill: (see medication tab): 10.14.22 Updated/Validated preferred pharmacy: Yes Patient instructed to contact the pharmacy prior to picking up the medication: N/A documented in this encounter [facility] 10-22-2022 Note Discharge Summary Marycruz Longoria : 1960 ADMIT DATE: 10/20/2022 DISCHARGE DATE: 10/22/2022 PRIMARY CARE PHYSICIAN: James Barron VISIT STATUS: Observation CODE STATUS: Full Code DISCHARGE DIAGNOSES: Principal Problem: Hiatal hernia Active Problems: Right groin pain Unilateral inguinal hernia without obstruction or gangrene Incisional hernia with obstruction but no gangrene Gastroesophageal reflux disease without esophagitis HOSPITAL COURSE: 62 y.o. female admitted on 10/20/2022 for elective laparoscopic hiatal hernia repair with mesh, Toupet fundoplication, right preperitoneal inguinal hernia repair, incarcerated incisional hernia repair and EGD. Patient tolerated the procedure well. On POD1 patient struggled with urinary retention and had to be straight cathed 2x for urinary volumes greater than 1L. Overnight POD1 into POD2 patient was able to urinate spontaneously. She was stable for discharge POD2. SIGNIFICANT DIAGNOSTIC STUDIES: GASTROGRAFIN UPPER GI SERIES CLINICAL INDICATIONS: Postop day one Toupet fundoplication. Evaluate for leak. COMPARISON: 10/02/2016 point FLUOROSCOPY TIME: 0.17 minutes FLUOROSCOPIC SPOT IMAGES: 49 FINDINGS: The exam was performed using Gastrografin orally as requested. There is narrowing of the distal end of the esophagus and deformity of the gastric fundus consistent with post surgical changes in accordance with Toupet fundoplication. There are no contrast extravasation or obstruction. The remainder of the esophagus is otherwise unremarkable. There is limited visualization of the stomach that shows contrast emptying into the duodenum without obstruction. There are surgical clips in the upper abdomen. IMPRESSION: Changes consistent with Toupet fundoplication. No extravasation or obstruction. Report Dictated on Electronically Signed By: Bj Edmondson Electronically Signed Date/Time: 10/21/2022 9:39 AM EST CONSULTANTS: None RECOMMENDED NEXT STEPS: Outpatient follow up Continue diet as instructed DISCHARGE MEDICATIONS: Medication List START taking these medications ondansetron 8 MG tablet Commonly known as: Zofran Take 1 tablet (8 mg) by mouth every 8 hours as needed for nausea or vomiting for up to 7 days. oxyCODONE-acetaminophen 5-325 MG tablet Commonly known as: Percocet Take 1 tablet by mouth every 6 hours as needed for severe pain (7-10) for up to 5 days. CONTINUE taking these medications albuterol 108 (90 Base) MCG/ACT inhaler Inhale 2 puffs every 6 hours as needed for shortness of breath. benazepril 40 MG tablet Commonly known as: Lotensin Take 1 tablet (40 mg) by mouth daily. dexlansoprazole [address] capsule Commonly known as: Dexilant Fluticasone-Salmeterol 250-50 MCG/ACT aerosol powder Inhale 1 puff in the morning and 1 puff in the evening. hydroCHLOROthiazide 12.5 MG capsule Commonly known as: Microzide Take 1 capsule (12.5 mg) by mouth daily. metoprolol succinate XL 100 MG 24 hr tablet Commonly known as: Toprol-XL Take 1 tablet (100 mg) by mouth daily. venlafaxine XR 150 MG 24 hr capsule Commonly known as: Effexor XR Take 1 capsule (150 mg) by mouth daily. Where to Get Your Medications These medications were sent to [facility] [address] [place] [address] Hours: Thursday to Thursday 10 am to 6 pm ondansetron 8 MG tablet oxyCODONE-acetaminophen 5-325 MG tablet DIET: Adult diet Full liquid ACTIVITY: No heavy lifting. ____ COMPLEXITY OF FOLLOW UP: [x] Moderate Complexity: follow up within 7-14 calendar days (19539) [] Severe Complexity: follow up within 7 calendar days (45692) FOLLOW UP TESTING, PENDING RESULTS OR REFERRALS AT TRANSITIONAL CARE VISIT: [] Yes [x] No PENDING STUDIES: None DISPOSITION: Home Follow up with Bj Parra MD [address] [place] [address] [address] [place] [address] Schedule an appointment as soon as possible for a visit in 2 week(s) SIGNED: OFE AZUL MD 10/22/2022, 9:48 AM [facility] 10-20-2022 Note Patient: Marycruz Ortega Katie irvin Procedure Summary Date: 10/20/22 Room / Location: [facility] [address] [place] [address] Operating Room Anesthesia Start: 1338 Anesthesia Stop: 1645 Procedures: EGD, LAPAROSCOPIC RIGHT INGUINAL HERNIA REPAIR WITH MESH, LAPAROSCIPIC HIATAL HERNIA REPAIR WITH MESH, OPEN INCISIONAL HERNIA REPAIR (Abdomen) EGD DIAGNOSTIC LAPAROSCOPY REPAIR INGUINAL HERNIA (Abdomen) Repair of anterior Abdominal wll hernia Diagnosis: Diaphragmatic hernia without obstruction or gangrene Unilateral inguinal hernia, without obstruction or gangrene, not specified as recurrent Umbilical hernia without obstruction or gangrene (Diaphragmatic hernia without obstruction or gangrene [K44.9]) (Unilateral inguinal hernia, without obstruction or gangrene, not specified as recurrent [K40.90]) (Umbilical hernia without obstruction or gangrene [K42.9]) Surgeons: Bj Parra MD Responsible Provider: GUANACO Meyer CRNA Anesthesia Type: general anesthesia, regional ASA Status: 3 Anesthesia Type: general anesthesia, regional Vitals Value Taken Time BP 136/77 10/20/22 1644 Temp 36.5 ?C (97.7 ?F) 10/20/22 1644 Pulse 62 10/20/22 1644 Resp 20 10/20/22 1644 SpO2 100 % 10/20/22 1644 Anesthesia Post Evaluation Patient location during evaluation: PACU Patient participation: complete - patient participated Level of consciousness: sleepy but conscious Pain management: satisfactory to patient Airway patency: patent Dental Injury: no Cardiovascular status: acceptable, blood pressure returned to baseline and hemodynamically stable Respiratory status: acceptable, spontaneous ventilation and face mask Hydration status: euvolemic Nausea/Vomiting: controlled No notable events documented. Patient can be discharged once all PACU criteria has been met. [facility] 10-20-2022 Note Patient: Marycruz Keys Procedure Summary Date: 10/20/22 Room / Location: [facility] [address] [place] [address] Operating Room Anesthesia Start: 1338 Anesthesia Stop: 1645 Procedures: EGD, LAPAROSCOPIC RIGHT INGUINAL HERNIA REPAIR WITH MESH, LAPAROSCIPIC HIATAL HERNIA REPAIR WITH MESH, OPEN INCISIONAL HERNIA REPAIR (Abdomen) EGD DIAGNOSTIC LAPAROSCOPY REPAIR INGUINAL HERNIA (Abdomen) Repair of anterior Abdominal wll hernia Diagnosis: Diaphragmatic hernia without obstruction or gangrene Unilateral inguinal hernia, without obstruction or gangrene, not specified as recurrent Umbilical hernia without obstruction or gangrene (Diaphragmatic hernia without obstruction or gangrene [K44.9]) (Unilateral inguinal hernia, without obstruction or gangrene, not specified as recurrent [K40.90]) (Umbilical hernia without obstruction or gangrene [K42.9]) Surgeons: Bj Parra MD Responsible Provider: GUANACO Meyer CRNA Anesthesia Type: general anesthesia, regional ASA Status: 3 Anesthesia Type: general anesthesia, regional Vitals Value Taken Time BP 136/77 10/20/22 1644 Temp 36.5 ?C (97.7 ?F) 10/20/22 1644 Pulse 62 10/20/22 1644 Resp 20 10/20/22 1644 SpO2 100 % 10/20/22 1644 Anesthesia Post Evaluation Patient location during evaluation: PACU Patient participation: complete - patient participated Level of consciousness: sleepy but conscious Pain management: satisfactory to patient Multimodal analgesia pain management approach Airway patency: patent Two or more strategies used to mitigate risk of obstructive sleep apnea Cardiovascular status: acceptable and hemodynamically stable Respiratory status: acceptable, face mask and spontaneous ventilation Hydration status: acceptable No notable events documented. MIPS #430 PONV Patient received an inhalational anesthetic (4554F) Patient does not exhibit three or more risk factors for PONV (X0430)) MIPS # 424 Perioperative Temperature Management Anesthesia time was 60 minutes or longer (4255F) Anesthesai administered was General (inhalational or TIVA) or Neuraxial block (X0424) At least one body temperature greater than 95.8F/35.5C achieved within the 30 mins immediately prior to or the 15 minutes immediately following anesthesia end time (G9771) MIPS #477 Multimodal Pain Management Not emergent case Patient was administered multimodal pain management (two or more drugs and/or interventions excluding systemic opioids) in the periopeartive period occurring at some time between 6 hours prior to anesthesia start time until discharged from PACU (G2148) MIPS #404 Anesthesiology Smoking Abstinence The patient is not a current smoker (e.g. cigarette, cigar, pipe, e-cigarette/vaping/marijuana) I completed my handoff to the receiving clinician during which we: 1. Identified the patient 2. Identified the responsible provider 3. Reviewed the pertinent medical history 4. Discussed the surgical course 5. Reviewed intra-op anesthesia management and issues during anesthesia 6. Set expectations for post-procedure period 7. Allowed opportunity for questions and acknowledgement of understanding. [facility] 10-20-2022 Note Airway Date/Time: 10/20/2022 1:44 PM Urgency: scheduled Airway not difficult General Information and Staff Patient location during procedure: Procedural Resident/SURVEILLANCE OFFICER: Leah Borden APRN - TONY Performed: SURVEILLANCE OFFICER Indications and Patient Condition Indications for airway management: anesthesia Sedation level: RSI Preoxygenated: yes Patient position: sniffing MILS maintained throughout Mask difficulty assessment: 0 - not attempted Final Airway Details Final airway type: endotracheal airway Successful airway: ETT Cuffed: yes Successful intubation technique: direct laryngoscopy Facilitating devices/methods: intubating stylet and cricoid pressure Blade: Katherin Blade size: #3 ETT size (mm): 7.0 Cormack-Lehane Classification: grade I - full view of glottis Placement verified by: capnometry Measured from: lips Number of attempts at approach: 1 [facility] 10-20-2022 Note Peripheral Block Time Out: 10/20/2022 1:41 PM Patient location during procedure: Procedural Start time: 10/20/2022 1:41 PM End time: 10/20/2022 1:46 PM Reason for block: at surgeon's request and post-op pain management Staffing Performed: SURVEILLANCE OFFICER Resident/SURVEILLANCE OFFICER: Garcia Alvarenga APRN - SURVEILLANCE OFFICER Preanesthetic Checklist Completed: patient identified, IV checked, site marked, risks and benefits discussed, surgical consent, monitors and equipment checked, pre-op evaluation and timeout performed Region: [place] Primary: TAP (Bupivacaine 0.375%/ Epi 1:200,000/ Dex 0.1mg/mL 40ml divided evenly bilateral) Secondary: Upper rectus (Bupivacaine 0.375%/ Epi 1:200,000/ Dex 0.1mg/mL 20ml divided evenly bilateral) Peripheral Block Patient position: supine Prep: ChloraPrep Patient monitoring: heart rate, cafeteria monitor, continuous pulse ox and continuous capnometry O2: ETT/LMA Laterality: bilateral Injection technique: single-shot Guidance: ultrasound guided -image retained in chart, tip of the needle identified by ultraound during injection. Needle Needle: 21G X 110 mm Additional Notes 10/20/2022 1:41 PM Assessment Injection assessment: negative aspiration for heme, no paresthesia on injection and incremental injection Heart rate change: no Slow fractionated injection: yes Required Documentation: Relevant anatomy identified (Nerves, Vessels, Muscles), Negative for blood on aspiration, Local anesthetic injected incrementally with intermittent aspiration every 5 mL, Normal resistance with injection, No EKG changes noted, No symptoms of toxicity, Local anesthetic spread visualized around nerves or plane. and Local anesthetic injected without difficultyMedications [id number] (TAP) syringe - Injection 60 mL - 10/20/2022 1:41:00 PM [facility] 10-20-2022 Note [facility] Patient Name: Marycruz Longoria Date: 10/20/22 Update History & Physical The patient's History and Physical was reviewed with the patient and there were no significant changes. I examined the patient and there were no significant changes from the previous History and Physical. I verify that the patient's condition and planned treatment has not changed. I also confirm the necessity for the procedure still present. Plan: The risk, benefits, expected outcome, and alternative to the recommended procedure have been discussed with the patient. Patient understands and wants to proceed with the procedure. HH Plan lap HH repair [facility] 10-13-2022 Note Patient: Marycruz Keys Procedure Information Date/Time: 10/20/22829 Procedures: LAPAROSCOPY REPAIR PARAESOPHAGEAL HERNIA INCLUDING FUNDOPLASTY WITH MESH, WITH EGD, LAPAROSCOPIC RIGHT INGUINAL HERNIA REPAIR WITH MESH, POSSIBLE BILATERAL, PRIMARY UMBILICAL HERNIA REPAIR, POSSIBLE OPEN (Abdomen) - 210 MINUTES TOTAL EGD DIAGNOSTIC LAPAROSCOPY REPAIR INGUINAL HERNIA (Abdomen) Repair of anterior Abdominal wll hernia Location: [address] Operating Room Surgeons: Bj Parra MD Past Medical History: Past Medical History: 09/2017: Breast cancer screening No date: COPD (chronic obstructive pulmonary disease) ([facility] 2000: Essential hypertension 12/04: Ex-smoker 2014: Generalized anxiety disorder 02/2016: GERD with stricture Comment: EGD with dil per Julian- recurrent esoph dil per Benitoowski- repeated 04/06: H/O colonoscopy Comment: Turowski- neg- due 2025 1997: Surgical menopause Comment: panhyst for endometriosis Past Surgical History: Past Surgical History: 1986: SECTION, LOW TRANSVERSE Comment: pfannenstiel 1988: SECTION, LOW TRANSVERSE Comment: Pfannenstiel 02/2016: COLONOSCOPY Comment: neg per Turowski- due 202505/15/2022: ESOPHAGOGASTRODUODENOSCOPY Comment: Gastritis. Follow-up with GI 6 weeks 1969: TONSILLECTOMY AND ADENOIDECTOMY (HISTORICAL) 1997: TOTAL ABDOMINAL HYSTERECTOMY 02/2016: UPPER GASTROINTESTINAL ENDOSCOPY Comment: esoph dil per Benitoowski 04/20/2017: UPPER GASTROINTESTINAL ENDOSCOPY Comment: Julian No date: WISDOM TOOTH EXTRACTION Social History: TOBACCO: reports that she quit smoking about 7 years ago. Her smoking use included cigarettes. She has a 17.50 pack-year smoking history. She has never used smokeless tobacco. ETOH: reports no history of alcohol use. Social History Substance and Sexual Activity Drug Use Never Family History: Family History Problem Relation Name Age of Onset ? Other (81800) Mother Bonita Davison lumbar disc ? High Blood Pressure Mother Bonita Davison age 92 ? Stroke Father Ed Armbrust ? Heart disease Father Ed Armbrust CHF ? High Blood Pressure Father Ed Armbrust age 89 in 11/04 ? No Known Problems Sister Argenis Quiñones ? No Known Problems Brother Miki ? Atrial fibrillation Brother Alfie ? No Known Problems Brother Valerio Screening: Hysterectomy Clinical information reviewed: Tobacco Allergies Meds Med Hx Surg Hx OB Status Fam Hx Physical Exam Airway Mallampati: II TM distance: >3 FB Neck ROM: full Mouth Open: normalendotracheal tube not in place Cardiovascular Dental (+) Upper Dentures Comments: Lower dentures Pulmonary Abdominal Anesthesia Plan ASA 3 general anesthesia and regional (TAP) The patient is not a current smoker. Patient was not previously instructed to abstain from smoking on day of procedure. Anesthetic plan and risks discussed with patient. patient is NPO General ERAS JOEL Screening STOP-Bang Total Score: 3 Labs: Lab Results Component Value Date WBC 8.8 12/25/2020 HGB 12.2 12/25/2020 MCV 87.7 12/25/2020 Lab Results Component Value Date NA 138 06/20/2022 K 4.3 06/20/2022 CL 98 06/20/2022 CO2 35 (H) 06/20/2022 BUN 16 06/20/2022 CREATININE 1.15 06/20/2022 GLUCOSE 98 06/20/2022 CALCIUM 9.4 06/20/2022 PROT 7.2 12/25/2020 ALKPHOS 73 12/25/2020 AST 30 12/25/2020 Pain Score: 7 No echocardiogram results found for the past 14 days No results found for this or any previous visit. [facility] 10-13-2022 Note Comprehensive PreSur gical History and Physical ? Name: Marycruz Longoria : 1960 (Age-62 y.o.) Date of Service: Pt seen/examined on 10/13/2022 Procedure Information Date/Time: 10/20/22 0830 Procedures: LAPAROSCOPY REPAIR PARAESOPHAGEAL HERNIA INCLUDING FUNDOPLASTY WITH MESH, WITH EGD, LAPAROSCOPIC RIGHT INGUINAL HERNIA REPAIR WITH MESH, POSSIBLE BILATERAL, PRIMARY UMBILICAL HERNIA REPAIR, POSSIBLE OPEN (Abdomen) - 210 MINUTES TOTAL EGD DIAGNOSTIC LAPAROSCOPY REPAIR INGUINAL HERNIA (Abdomen) Repair of anterior Abdominal wll hernia Location: [address] Operating Room Surgeons: Bj Parra MD Chief Complaint: Umbilical hernia/ paraesophageal hernia/right inguinal hernia History Of Present Illness: 62 y.o. female who we are asked to see/evaluate by No name on file for pre-operative evaluation prior to . ? Pt. Presenting for the above surgery hiatal hernia and reflux. Has had reflux for years and has tried multiple PPI's. Currently taking Dexilant daily and still with breakthrough symptoms. Wakes with acid taste to mouth, also with activity. per chart review: pt. has Intermittent episodes of dysphagia resulting in regurgitation and emesis. Will get epigastric pain with larger meals. Underwent Esophagram and EGD that identified moderate/large hiatal hernia with reflux; no h pylori or Tipton's. Pt. Saw above and elected for the procedure Past Medical History: Past Medical History: 09/2017: Breast cancer screening No date: COPD (chronic obstructive pulmonary disease) ([facility]) 2000: Essential hypertension 12/04: Ex-smoker 2014: Generalized anxiety disorder 02/2016: GERD with stricture Comment: EGD with dil per Julian- recurrent esoph dil per Julian- repeated 04/06: H/O colonoscopy Comment: Turkathy- neg- due 2025 1997: Surgical menopause Comment: panhyst for endometriosis Past Surgical History: Past Surgical History: 1986: SECTION, LOW TRANSVERSE Comment: pfannenstiel 1988: SECTION, LOW TRANSVERSE Comment: Pfannenstiel 02/2016: COLONOSCOPY Comment: neg per Turowski- due 202505/15/2022: ESOPHAGOGASTRODUODENOSCOPY Comment: Gastritis. Follow-up with GI 6 weeks 1969: TONSILLECTOMY AND ADENOIDECTOMY (HISTORICAL) 1998: TOTAL ABDOMINAL HYSTERECTOMY 02/2016: UPPER GASTROINTESTINAL ENDOSCOPY Comment: esoph dil per Julian 04/20/2017: UPPER GASTROINTESTINAL ENDOSCOPY Comment: Julian No date: WISDOM TOOTH EXTRACTION Medications Prior to Admission: Prior to Admission medications Medication Sig Start Date End Date Taking? Authorizing Provider albuterol 108 (90 Base) MCG/ACT inhaler Inhale 2 puffs every 6 hours as needed. 06/17/22 09/26/22 Historical Provider, benazepril (Lotensin) 40 MG tablet 07/05/22 Historical Provider, dexlansoprazole (Dexilant) [address] capsule Take 1 capsule by mouth in the morning. 07/25/22 Historical Provider, Fluticasone-Salmeterol 250-50 MCG/ACT aerosol powder Inhale 1 puff in the morning and 1 puff in the evening. 09/10/21 Historical Provider, hydroCHLOROthiazide (Microzide) 12.5 MG capsule Take 1 capsule by mouth in the morning. 06/17/22 09/26/22 Historical Provider, metoprolol succinate XL (Toprol-XL) 100 MG 24 hr tablet Take 1 tablet by mouth in the morning. 06/17/22 Historical Provider, venlafaxine XR (Effexor XR) 150 MG 24 hr capsule Take 1 capsule (150 mg) by mouth daily. 09/08/22 James Barron DO CHRONIC NARCOTIC USE: No Allergies: Patient has no known allergies. If patient has opioid allergy, is it okay to take Acetaminophen: Yes Social History: TOBACCO: reports that she quit smoking about 7 years ago. Her smoking use included cigarettes. She has a 17.50 pack-year smoking history. She has never used smokeless tobacco. ETOH: reports no history of alcohol use. Social History Substance and Sexual Activity Drug Use Never Family History: Family History Problem Relation Name Age of Onset Other (72888) Mother Bonita Davison lumbar disc High Blood Pressure Mother Bonita Davison age 92 Stroke Father Ed Armbrmark Heart disease Father Ed Armbrust CHF High Blood Pressure Father Ed Saman age 89 in 11/04 No Known Problems Sister Argenis Quiñones No Known Problems Brother Miki Atrial fibrillation Brother Alfie No Known Problems Brother Valerio REVIEW OF SYSTEMS: Review of Systems Constitutional: Negative. Negative for unexpected weight change. HENT: Negative. Eyes: Negative. Respiratory: Negative. Cardiovascular: Negative. Gastrointestinal: Negative. Endocrine: Negative. Genitourinary: Negative. Musculoskeletal: Negative. Skin: Negative. Neurological: Negative. Hematological: Negative. Psychiatric/Behavioral: Negative. All other systems reviewed and are negative. Physical Exam: Physical Exam Vitals reviewed. Constitutional: Appearance: Normal appearance. HENT: Head: Normocephali (more content not included)... [facility] 10-13-2022 Note Comprehensive PreSur gical History and Physical ? Name: Marycruz Longoria : 1960 (Age-62 y.o.) Date of Service: Pt seen/examined on 10/13/2022 Procedure Information Date/Time: 10/20/22 0830 Procedures: LAPAROSCOPY REPAIR PARAESOPHAGEAL HERNIA INCLUDING FUNDOPLASTY WITH MESH, WITH EGD, LAPAROSCOPIC RIGHT INGUINAL HERNIA REPAIR WITH MESH, POSSIBLE BILATERAL, PRIMARY UMBILICAL HERNIA REPAIR, POSSIBLE OPEN (Abdomen) - 210 MINUTES TOTAL EGD DIAGNOSTIC LAPAROSCOPY REPAIR INGUINAL HERNIA (Abdomen) Repair of anterior Abdominal wll hernia Location: [address] Operating Room Surgeons: Bj Parra MD Chief Complaint: Umbilical hernia/ paraesophageal hernia/right inguinal hernia History Of Present Illness: 62 y.o. female who we are asked to see/evaluate by No name on file for pre-operative evaluation prior to . ? Pt. Presenting for the above surgery hiatal hernia and reflux. Has had reflux for years and has tried multiple PPI's. Currently taking Dexilant daily and still with breakthrough symptoms. Wakes with acid taste to mouth, also with activity. per chart review: pt. has Intermittent episodes of dysphagia resulting in regurgitation and emesis. Will get epigastric pain with larger meals. Underwent Esophagram and EGD that identified moderate/large hiatal hernia with reflux; no h pylori or Tipton's. Pt. Saw above and elected for the procedure Past Medical History: Past Medical History: 09/2017: Breast cancer screening No date: COPD (chronic obstructive pulmonary disease) ([facility] 2001: Essential hypertension 12/04: Ex-smoker 2014: Generalized anxiety disorder 02/2016: GERD with stricture Comment: EGD with dil per Julian- recurrent esoph dil per Julian- repeated 04/06: H/O colonoscopy Comment: Julian- neg- due 2025 1997: Surgical menopause Comment: panhyst for endometriosis Past Surgical History: Past Surgical History: 1986: SECTION, LOW TRANSVERSE Comment: pfannenstiel 1988: SECTION, LOW TRANSVERSE Comment: Pfannenstiel 02/2016: COLONOSCOPY Comment: neg per Turowski- due 202505/15/2022: ESOPHAGOGASTRODUODENOSCOPY Comment: Gastritis. Follow-up with GI 6 weeks 1969: TONSILLECTOMY AND ADENOIDECTOMY (HISTORICAL) 1998: TOTAL ABDOMINAL HYSTERECTOMY 02/2016: UPPER GASTROINTESTINAL ENDOSCOPY Comment: leticia cathy mervat Benitokathy 04/20/2017: UPPER GASTROINTESTINAL ENDOSCOPY Comment: Julian No date: WISDOM TOOTH EXTRACTION Medications Prior to Admission: Prior to Admission medications Medication Sig Start Date End Date Taking? Authorizing Provider albuterol 108 (90 Base) MCG/ACT inhaler Inhale 2 puffs every 6 hours as needed. 06/17/22 09/26/22 Historical Provider, benazepril (Lotensin) 40 MG tablet 07/05/22 Historical Provider, dexlansoprazole (Dexilant) [address] capsule Take 1 capsule by mouth in the morning. 07/25/22 Historical Provider, Fluticasone-Salmeterol 250-50 MCG/ACT aerosol powder Inhale 1 puff in the morning and 1 puff in the evening. 09/10/21 Historical Provider, hydroCHLOROthiazide (Microzide) 12.5 MG capsule Take 1 capsule by mouth in the morning. 06/17/22 09/26/22 Historical Provider, metoprolol succinate XL (Toprol-XL) 100 MG 24 hr tablet Take 1 tablet by mouth in the morning. 06/17/22 Historical Provider, venlafaxine XR (Effexor XR) 150 MG 24 hr capsule Take 1 capsule (150 mg) by mouth daily. 09/08/22 James Barron DO CHRONIC NARCOTIC USE: No Allergies: Patient has no known allergies. If patient has opioid allergy, is it okay to take Acetaminophen: Yes Social History: TOBACCO: reports that she quit smoking about 7 years ago. Her smoking use included cigarettes. She has a 17.50 pack-year smoking history. She has never used smokeless tobacco. ETOH: reports no history of alcohol use. Social History Substance and Sexual Activity Drug Use Never Family History: Family History Problem Relation Name Age of Onset Other ([address]54) Mother Bonita Davison lumbar disc High Blood Pressure Mother Bonita Davison age 92 Stroke Father Ed Armbrust Heart disease Father Ed Armbrust CHF High Blood Pressure Father Ed Saman age 89 in 11/04 No Known Problems Sister Argenis Quiñones No Known Problems Brother Miki Atrial fibrillation Brother Alfie No Known Problems Brother Valerio REVIEW OF SYSTEMS: Review of Systems Constitutional: Negative. Negative for unexpected weight change. HENT: Negative. Eyes: Negative. Respiratory: Negative. Cardiovascular: Negative. Gastrointestinal: Negative. Endocrine: Negative. Genitourinary: Negative. Musculoskeletal: Negative. Skin: Negative. Neurological: Negative. Hematological: Negative. Psychiatric/Behavioral: Negative. All other systems reviewed and are negative. Physical Exam: Physical Exam Vitals reviewed. Constitutional: Appearance: Normal appearance. HENT: Head: Normocephali (more content not included)... [facility] [employer] [facility] documented in this encounter [employer] Phone: Evaluation note* Diagnosis Cough documented in this encounter [employer] Phone: Evaluation note* Diagnosis Left hip pain Pain in joint, pelvic region and thigh documented in this encounter [email or web address] Phone: Evaluation note* Diagnosis Essential hypertension- Primary Unspecified essential hypertension Gastroesophageal reflux disease without esophagitis Esophageal reflux Chronic obstructive pulmonary disease, unspecified COPD type (HCC) Ex-smoker Personal history of tobacco use, presenting hazards to health Generalized anxiety disorder [facility] Rash- Primary Rash and other nonspecific skin eruption [facility] Primary hypertension- Primary Unspecified essential hypertension Gastroesophageal reflux disease without esophagitis Esophageal reflux Depression, unspecified depression type Chronic obstructive pulmonary disease, unspecified COPD type (HCC) Ex-smoker Personal history of tobacco use, presenting hazards to health Hypercholesterolemia Pure hypercholesterolemia Encounter for screening mammogram for malignant neoplasm of breast documented in this [facility] Chief Complaint Chief Complaint Description Start Date right ankle pain Preliminary chief co mplaint data, not yet signed by the author as of Instructions Instruction Description Start Date Patient advised to follow-up with Primary Care Physician for BMI management. 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 ACP-Advance Directive ACP-Power of Order Management Specialist Documents on File Type Date Recorded 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 ACP-Advance Directive ACP-Power of Order Management Specialist Latest Code Status on File Code Status Date Activated Date Inactivated Comments Full Code 11/21/2019 11:43 AM 11/22/2019 2:38 AM Full Code 04/20/2017 7:37 AM 04/20/2017 11:46 AM Full Code 02/26/2016 7:37 AM 02/26/2016 12:05 PM Latest Code Status on File Code Status Date Activated Date Inactivated Comments Full Code 04/20/2017 7:37 AM 04/20/2017 11:46 AM Latest Code Status on File Code Status Date Activated Date Inactivated Comments Full Code 10/20/2022 7:57 PM 10/22/2022 3:25 PM Code Status History Code Status Date Activated Date Inactivated Comments Full Code 10/20/2022 11:25 AM 10/20/2022 7:57 PM Assessments Diagnosis Abnormal mammogram Abnormal mammogram, unspecified Review of System There may be information available, but it has not been provided by the sender. Family History There may be information available, but it has not been provided by the sender.No Family History Records FoundNo Family History Records FoundNo Family History Records Found History of Present Illness There may be information available, but it has not been provided by the sender. * Flores Ramirez RN - 11/21/2019 12:30 PM EST PATIENT RECEIVED FROM OR VIA CART. SPONT RESP. WITH SURVEILLANCE OFFICER IN ATTENDANCE. PLACED ON MONITOR. documented in this encounter Discharge Instructions * Instructions* Flores Ramirez RN - 11/21/2019 Upper GI Endoscopy and Colonoscopy: What to expect at home ACTIVITY: DO NOT DRIVE, OPERATE MACHINERY, OR DRINK ANY ALCOHOL TODAY. Avoid making critical decisions, signing legal documents, or performing any activity that requires alertness for the rest of the day. You may be bloated or have gas pains since air was introduced into the stomach for the procedure. You may need to pass the gas throughout the day. You may experience a mild sore throat. You may use an enqy-czg-ummkzky chloraseptic spray, gargle with warm salt water, or use throat lozenges. Notify your physician if this feeling lasts more than 48 hours. You may experience a small amount of rectal bleeding; this can be normal after your colonoscopy. Notify your physician if the bleeding is enough to saturate your clothes. Rest the remainder of the day. Rest the remainder of the day. You may resume normal activity tomorrow. You may return to work tomorrow. DIET: You may resume a normal diet unless notified or recommended by your physician. You may be eager to eat a large meal after fasting, but it is a good idea to start with light mealsand ease into solid foods the first day. (*) If your stomach is upset, try clear liquids and bland, low-fat foods like plain toast or rice. Drink plenty of fluids for the first 24 hours (unless your physician states otherwise). MEDICATION: Resume your normal home medications unless notified or recommended by your physician. If you take blood thinners (such as Coumadin, Eliquis, Plavix, Aspirin, etc.) or anti-inflammatory medications (Advil, Motrin, Aleve, etc.), ask your physician when you may resume these medications. FOLLOW-UP APPOINTMENT: Follow up with or call your physician as needed. When to call for help: Call your doctor IMMEDIATELY or seek medical care if you experience: ? Severe pain or vomiting ? Coughing up more than a teaspoon of blood ? You pass a large amount of tar-like stools ? A large amount (filling the toilet) of maroon, bloody stools ? Your belly is swollen and firm with severe pain ? A fever greater than 101 degrees ? Redness or swelling of arm from the IV site for more than 48 hours ? Sudden onset of chest pain or shortness of breath ? If you become extremely dizzy or pass out (lose consciousness) IF YOU ARE UNABLE TO REACH YOUR PHYSICIAN GO TO NEAREST EMERGENCY DEPARTMENT Colon Polyps You must carefully read the [place] Use and Disclaimer below in order to understand and correctly use this information The Basics Written by the doctors and editors at [facility] What are colon polyps? Colon polyps are tiny growths that form on the inside of the large intestine(also known as the colon) (figure 1). Polyps are very common. Roughly one-third to one-half of all adults have them. They do not usually cause symptoms. But some polyps can be or become cancer, so doctors sometimes remove them. What are the symptoms of colon polyps? Colon polyps do not usually cause symptoms. How do doctors find colon polyps? Doctors usually find colon polyps when they are doing screening tests to check for colon or rectal cancer. Cancer screening tests are tests that are done to try and find cancer early, before a person has symptoms. The screening tests for colon and rectal cancer include: ?Colonoscopy Before having a colonoscopy, you will get medicine to help you relax. Then a doctor will put a thin tube into your anus and advance it into your colon (figure 2). The tube has a camera attached to it, so the doctor can look inside your colon. The tube also has tools on the end, so the doctor can remove pieces of tissue, including polyps. After polyps are removed, they usually go to [facility] to be tested for cancer and other problems. ?Sigmoidoscopy A sigmoidoscopy is very similar to a colonoscopy. The only difference is that this test looks only at the first part of the colon, and a colonoscopy looks at the whole colon. ?CT colonography (also known as virtual colonoscopy) For a virtual colonoscopy, you have a special kind of X-ray taken, called a CT scan. This test creates pictures of the colon. ?Barium enema During a barium enema, a doctor or nurse squirts a fluid that shows up on X-rays intoyour rectum. Then he or she takes X-rays to create pictures of the colon. ?Stool test Stool is another word for bowel movements. Stool tests check for blood or abnormal genes in samples of stool. If a stool test indicates that something might be wrong with the colon, doctors usually follow up with a colonoscopy. Then doctors find polyps, if they are there. How are colon polyps treated? Doctors remove polyps using the same tools they use for a colonoscopy. They can remove polyps either by snipping them off with a special cutting tool, or by catching thepolyps in a noose (figure 3). Most polyps can be removed during a colonoscopy. But sometimes, largepolyps need to be removed at a later time. What happens after I have polyps removed? You might need to have a colonoscopy every few years to check for more polyps. In some people polyps come back. And if you had the kind of polyps that could become cancer, your doctor will want to remove them as they appear. Also, if the polyps you had removed were the kind that could become cancer, people in your family might need to be checked for polyps and colon cancer, too. Can colon polyps be prevented? To reduce your chances of getting (more) polyps or colon cancer: ?Eat a diet that is low in fat and high in fruits, vegetables, and fiber ?Lose weight, if you are overweight ?Do not smoke ?Limit the amount of alcohol you drink All topics are updated as new evidence becomes available and our peer review process is complete. Topic 57196 Version 5.0 Release: 25.3 - C25.127 2017 [employer]. All rights reserved. Hiatal Hernia Discharge Instructions You must carefully read the Consumer Information Use and Disclaimer below in order to understand and correctly use this information About this topic Hiatal hernia is when part of the stomach is up in the chest. It sticks up through the muscle that divides the chest and abdomen. This muscle is called the diaphragm. It keeps stomach acid from goingback up the swallowing tube. The swallowing tube is called the esophagus. Image(s) What care is needed at home? ? Ask your doctor what you need to do when you go home. Make sure you ask questions if you do not understand what the doctor says. This way you will know what you need to do. ? Do not wear tight clothing over your belly. Wear clothes and belts that are loose around your waist. ? Raise the head of the bed up 6 to 8 inches (15 to 20 cm) or use a wedge pillow. This position maykeep stomach acid from getting into the esophagus. What follow-up care is needed? Your doctor may ask you to make visits to the office to check on your progress. Be sure to keep these visits. What drugs may be needed? The doctor may order drugs to: ? Lower stomach acid ? Stop heartburn ? Help with pain Will physical activity be limited? ? You may have to limit your activity. Talk to the doctor about the right amount of activity for you. Avoid sports that involve lifting heavy things and bending. This can cause stress on your belly. ? Avoid straining. Having trouble passing stool or hard stools may make your hernia worse. What changes to diet are needed? ? Avoid large, heavy meals. Eat a few small meals throughout the day. ? Avoid drinking too much with meals. ? Wait at least 2 to 3 hours after eating before lying down or bending over. ? Avoid foods that may upset the stomach. Some people have an upset belly after: o Coffee o [place] fruits and juices o Tomato products o Hot peppers o Fizzy drinks o Chocolate o Peppermint o Fatty foods o Beer, wine, and mixed drinks (alcohol) What problems could happen? ? Lower blood levels of iron ? No blood flow to hernia What can be done to prevent this health problem? ? Keep a healthy weight. ? Lose weight if you are overweight. ? Avoid smoking. Ask for help if it's hard to quit. When do I need to call the doctor? ? Heartburn that is worse when bending over or lying down ? Swallowing problems ? You are not feeling better in 2 to 3 days or you are feeling worse Teach Back: Helping You Understand The Teach Back Method helps you understand the information we are giving you. The idea is simple. After talking with the staff, tell them in your own words what you were just told. This helps to makesure the staff has covered each thing clearly. It also helps to explain things that may have been abit confusing. Before going home, make sure you are able to do these: ? I can tell you about my condition. ? I can tell you what changes I need to make with my diet or drugs. ? I can tell you what I will do if I have more heartburn when I am bending over or lying down. Where can I learn more? NHS Choices http://www.nhs.uk/conditions/hernia-hiatus/pages/introduction.aspx Consumer Information Use and Disclaimer: This information is not specific medical advice and does not replace information you receive from your health care provider. This is only a brief summary of general information. It does NOT include all information about conditions, illnesses, injuries, tests, procedures, treatments, therapies, discharge instructions or life-style choices that may apply to you. You must talk with your health care provider for complete information about your health and treatment options. This information should not be used to decide whether or not to accept your health care provider s advice, instructions or recommendations. Only your health care provider has the knowledge and training to provide advice that is right for you. Last Reviewed Date 2014-06-29 Last Updated 09/27/16 documented in this encounter Reason for Referral Status Reason Specialty Diagnoses / Procedures Referre d By Contact Referred To Contact [facility] Diagnoses Abnormal mammogram Procedures US Breast Limited Left James Barron DO [address] [place] [address] Status Reason Specialty Diagnoses / Procedures Re ferred By Contact Referred To Contact [facility] Diagnoses Epigastric pain Procedures CT ABDOMEN PELVIS W IV CONTRAST Additional Contrast? 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 Date End Date Taye Quintana, DO [address] [place] [address] PCP - General Family Medicine 12/25/22 Kilo Dela Cruz, DO [address] [place] [address] Gastroenterology 09/26/22 Annamaria Charles APRN - LAMP SHADE JOINER [address] [place] [address] Nurse Practitioner Nurse Practitioner [facility] 11/07/22 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 Date End Date Taye Quintana, DO [address] [place] [address] PCP - General Family Medicine 12/25/22 Kilo Dela Cruz, [address] [place] [address] Gastroenterology 09/26/22 Annamaria Charles APRN - LAMP SHADE JOINER [address] [place] [address] Nurse Practitioner Nurse Practitioner Family 11/07/22 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 Date End Date Taye Quintana DO [address] [place] [phone] PCP - General Family Medicine 12/25/22 Kilo Dela Cruz DO [address] [place] [address] Gastroenterology 09/26/22 Annamaria Charles APRN - LAMP SHADE JOINER [address] [place] [phone] Nurse Practitioner Nurse Practitioner [facility] 11/07/22 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 Date End Date Taye Quintana DO [address] [place] [phone] PCP - General Family Medicine 12/25/22 Kilo Dela Cruz DO [address] [place] [phone] Gastroenterology 09/26/22 Annamaria Charles APRN - LAMP SHADE JOINER [address] [place] [address] Nurse Practitioner Nurse Practitioner Family 11/07/22 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 Date End Date Taye Quintana DO [address] [place] [phone] PCP - General Family Medicine 12/25/22 Kilo Dela Cruz DO [address] [place] [address] Gastroenterology 09/26/22 Annamaria Charles APRN - LAMP SHADE JOINER [address] [place] [address] Nurse Practitioner Nurse Practitioner Family 11/07/22 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 Date End Date Taye Quintana [address] [facility] [address] [place] [phone] PCP - General Family Medicine 12/25/22 Kilo Dela Cruz DO [address] [place] [phone] Gastroenterology 09/26/22 Annamaria Charles APRN - LAMP SHADE JOINER [address] [place] [address] Nurse Practitioner Nurse Practitioner Family 11/07/22 INFORMATION SOURCE (unrecogn ized section and content) DATE CREATED AUTHOR AUTHOR'S ORGANIZ ATION 08/09/2023 [facility] DATE CREATED AUTHOR AUTHOR'S ORGANIZ ATION 08/23/2023 [facility] Source Comments (unrecognize d section and content) In the event this informatio n is protected by the Federal Confidentiality of Alcohol and Drug Abuse Patient Records regulations: The Federal rules restrict any use of the information to criminally investigate or prosecute any alcohol or drug abuse patient.[facility] FOR RECORDS PERTAINING TO PATIENTS WHO ARE OR HAVE BEEN ENROLLED IN A CHEMICAL DEPENDENCY/SUBSTANCEABUSE PROGRAM, SOME INFORMATION MAY BE OMITTED. This clinical summary was aggregated from multiple sources. Caution should be exercised in using it in the provision of clinical care. This summary normalizes information from multiple sources, and as a consequence, information in this document may materially change the coding, format and clinical context of patient data. In addition, data may be omitted in some cases. CLINICAL DECISIONS SHOULD BE BASED ON THE PRIMARY CLINICAL RECORDS. [facility] [employer] [facility]. provides no warranty or guarantee of the accuracy or completeness of information in this document.
== END | disposition home or self-care (01) ==
LOC: OPBI 08:34
PROVIDERS: PCP Family Medicine; Referring Provider Family Medicine; Visit Provider Family Medicine
DX: Z12.31 Encounter for screening mammogram for malignant neoplasm of breast (principal)
CPT/HCPCS: 77063; 77067

== ENCOUNTER → 2024-06-24 | Outpatient (CLI) | payer OTHER, SELFPAY ==
--- NOTE | 2024-06-24 11:45 | RAD_ITS ---
INDICATION: NECK PAIN EXAMINATION/TECHNIQUE: X-RAY - XR Spine Cervical 4 or 5 Views COMPARISON: None. FINDINGS: VERTEBRAE: Preserved vertebral body height. No fracture. No spondylolisthesis. Preservation of the normal cervical lordosis. DISCS: Diffuse loss of disc space height from C3-4 through C6-7. Spondylitic osteophytes project into the neural foramina bilaterally from C3-4 through C6-7. NECK SOFT TISSUES: No prevertebral soft tissue widening. LUNG APICES: Clear. RAD/Cerv Spine 4 or 5 Views IMPRESSION: Diffuse cervical spondylosis and degenerative disc disease. No acute bony abnormality.. Electronically Signed: Pj Taylor MD at 0:17 EDT ,
== END | disposition home or self-care (01) ==
LOC: RAD 11:40
PROVIDERS: Referring Provider Physician Assistant; Visit Provider Physician Assistant
DX: M54.2 Cervicalgia (principal)
CPT/HCPCS: 72050

== ENCOUNTER → 2024-10-05 | Outpatient (CLI) | payer BC, SELFPAY ==
--- NOTE | 2024-10-05 17:55 | CT_ITS ---
STUDY: LOW DOSE CT LUNG CANCER SCREENING REASON FOR EXAM: Female, 64 years old. Former smoker. Patient smoked one half pack per day for 20 years. RADIATION DOSAGE (If Supplied By Facility): CTDIvol = ( 2.01 ) mGy, DLP = ( 65.45 ) mGycm TECHNIQUE: No contrast was administered. Low dose technique was utilized (average mAS-38 and kVp 120). 1.25 mm axial source images with a slice interval of 1.25-mm were reconstructed in lung windows. 2.5 mm axial source images with a slice interval of 2.5-mm were reconstructed in lung windows. 5.0 mm axial source images with a slice interval of 5.0-mm were reconstructed in soft tissue windows. COMPARISON: None. NODULES: There is a 6.1 mm calcified granuloma at the right lung apex. 2 mm calcified granuloma in the peripheral anterior aspect of the left lower lobe. Emphysema: Mild degree of bilateral apical scarring. Mild degree of acceptance changes more prominent in the upper lobes. Endobronchial lesion: None Aorta: Scattered atherosclerotic plaque formation of the aortic arch. CORONARY ARTERIES: Coronary artery calcification is not seen. Heart: Unremarkable. Pulmonary artery: Unremarkable. Mediastinal nodes: Other chest and abdominal findings: Moderate sized hiatal hernia. CT/Low Dose CT Lung Screening IMPRESSION: Lung-RADS category 2 - Continue annual screening with LDCT in 12 months. IMPORTANT NOTES FOR USE: ACR Lung-RADS Version 1.1 Assessment Categories Release Date: 2018 Category: Coded 0-4 bases on nodule(s) with highest degree of suspicion. Negative screen is defined as categories 1 and 2; a positive screen is defined as categories 3 and 4. Category 3 and 4A nodules that are unchanged on interval CT should be coded as category 2, and individuals returned to screening in 12 months. Category 4X: Category 3 or 4 nodules with additional imaging findings that increase the suspicion of lung cancer, such as spiculation, GGN that doubles in size in 1 year, enlarged lymph notes, etc. Category Modifiers: S (significant finding unrelated to lung cancer) Electronically Signed: Leonidas Carrasco MD at 9:55 EST ,
== END | disposition home or self-care (01) ==
LOC: CT 17:54
PROVIDERS: Visit Provider Physician Assistant
DX: Z12.2 Encounter for screening for malignant neoplasm of respiratory organs (principal); Z87.891 Personal history of nicotine dependence
CPT/HCPCS: 71271

== ENCOUNTER → 2025-03-29 | Outpatient (CLI) | payer BC, SELFPAY ==
--- NOTE | 2025-03-29 15:20 | BD_ITS ---
PROCEDURE: DEXA BONE DENSITY STUDY 03/29/2025 REASON FOR EXAM: F, age 65 y/o . Postmenopausal. TECHNIQUE: DEXA BONE DENSITY STUDY COMPARISON: None FINDINGS: BMD and T-SCORES Lumbar spine: 0.836 g/cm2, T-score -1.8 Levels: L1 through L4 Right femoral neck: 0.647 g/cm2, T-score -1.8 Femoral neck comparison data not recommended for monitoring change. Right total hip: 0.777 g/cm2, T-score -1.4 The World Health Organization has defined the following categories based on bone density: Normal bone density: T-score equal to or greater than -1.0 Osteopenia: T-score between -1.0 and -2.5 Osteoporosis: T-score equal to or less than -2.5 The patient does meet the pharmacological treatment recommendations for prevention of osteoporosis. BD/Dexa Bone Density Study IMPRESSION: OSTEOPENIA. Recommend follow-up as clinically warranted. Reading Location: [place] [id number]
== END | disposition home or self-care (01) ==
LOC: OPBD 15:19
PROVIDERS: Referring Provider Physician Assistant; Visit Provider Physician Assistant
DX: Z78.0 Asymptomatic menopausal state (principal); Z13.820 Encounter for screening for osteoporosis
CPT/HCPCS: 77080

== ENCOUNTER → 2025-05-09 | Outpatient (CLI) | payer BC, SELFPAY ==
--- NOTE | 2025-05-09 13:56 | ECHOD_ITS ---
Reason For Study Reason For Study: MURMUR Procedure This was a 2D Doppler, Color Flow transthoracic echocardiogram. Exam performed in department. Left Ventricle Normal LV size. Left ventricular systolic function is normal. The left ventricular ejection fraction is 65 %. No regional wall motion abnormalities noted. Right Ventricle Normal RV size. Normal systolic function. Atria Normal left atrium. Normal right atrium. Mitral Valve Normal mitral valve. Tricuspid Valve Normal tricuspid valve. Mild tricuspid valve insufficiency. Pulmonary artery systolic pressure is 30 mmHg. Aortic Valve Trisinus/trileaflet aortic valve. Pulmonic Valve Normal pulmonic valve. Great Vessels Normal aortic root. The pulmonary artery is normal size. Inferior vena cava collapse with respiration. Pericardium/Pleural No pericardial effusion. MMode/2D Measurements & Calculations LVIDd: 4.5 cm IVSd: 0.88 cm LVOT diam: 1.8 cm LVIDs: 2.4 cm LVPWd: 0.85 cm LVOT area: 2.6 cm2 RVDd: 3.8 cm FS: 47.4 % asc Aorta Diam: 4.0 cm LAV(MOD-bp): 41.9 ml LVAd ap4: 23.6 cm2 LAV(MOD-bp) Indexed: 22.9 ml/m2 LVLd ap4: 7.1 cm LAV(MOD-sp2): 38.9 ml EDV(MOD-sp4): 63.8 ml LAV(MOD-sp4): 41.3 ml EDV(sp4-el): 66.6 ml LVAs ap4: 13.0 cm2 LVLs ap4: 6.0 cm ESV(MOD-sp4): 23.4 ml ESV(sp4-el): 24.0 ml EF(MOD-sp4): 63.3 % EF(sp4-el): 64.0 % LVAd ap2: 20.3 cm2 SV(MOD-sp4): 40.4 ml SV(MOD-sp2): 30.4 ml LVLd ap2: 7.0 cm SI(MOD-sp4): 22.1 ml/m2 SI(MOD-sp2): 16.6 ml/m2 EDV(MOD-sp2): 48.5 ml EDV(sp2-el): 49.7 ml LVAs ap2: 11.4 cm2 LVLs ap2: 6.0 cm ESV(MOD-sp2): 18.2 ml ESV(sp2-el): 18.4 ml EF(MOD-sp2): 62.6 % SV(sp4-el): 42.6 ml Ao sinus diam: 3.[address] Junction: 2.8 cm LA dimension(2D): 3.5 cm LA A4 area: 15.4 cm2 RA A4 area: 11.9 cm2 TAPSE: 2.1 cm Time Measurements MV dec time: 0.21 sec Doppler Measurements & Calculations MV E max steve: 83.5 cm/sec Lat Peak E' Steve: 11.2 cm/sec Med Peak E' Steve: 8.9 cm/sec MV A max steve: 81.5 cm/sec E/E' lat: 7.5 E/E' med: 9.4 MV E/A: 1.0 MV dec slope: 405.0 cm/sec2 Ao V2 max: 181.1 cm/sec LV V1 max: 140.2 cm/sec Ao max P.1 mmHg LV V1 max P.9 mmHg Ao V2 mean: 128.0 cm/sec LV V1 mean P.9 mmHg Ao mean P.4 mmHg LV V1 mean: 105.7 cm/sec Ao V2 VTI: 43.1 cm LV V1 VTI: 34.4 cm AV (velocity ratio): 0.80 LOS(I,D): 2.1 cm2 LOS(V,D): 2.0 cm2 SV(LVOT): 89.0 ml PA V2 max: 93.0 cm/sec TR max steve: 262.6 cm/sec TR max P.6 mmHg ECHO/Echo Complete Interpretation Summary Normal LV size. Left ventricular systolic function is normal. The left ventricular ejection fraction is 65 %. Structurally normal valves. Ordering Physician: Elaine Mayes Referring Physician: Elaine Mayes Performed By: Nel Springer RDCS
== END | disposition home or self-care (01) ==
LOC: CVS 13:51
PROVIDERS: Referring Provider Physician Assistant; Visit Provider Physician Assistant
DX: R01.1 Cardiac murmur, unspecified (principal)
CPT/HCPCS: 93306